=== PATIENT | female | born 1950 | race African-American/Black ===

== ENCOUNTER 2021-01-22 09:42 | Outpatient (REF) | payer MEDICARE, MEDICAID, SELFPAY ==
--- NOTE | ~2021-01-22 | MM_ITS ---
EXAMINATION: BONE DENSITOMETRY CLINICAL INDICATION: Asymptomatic menopausal state. COMPARISON: None (current study represents initial baseline exam). TECHNIQUE: Using a [employer] DXA System (software version: 13.1) manufactured by [employer], dual-energy x-ray absorptiometry was performed of the lumbar spine and left hip. The images are of good technical quality. Summary results are attached. FINDINGS: AP SPINE L1-L4: BMD 0.940 g/cm2, Z-score -1.3, T-score -2.0, osteopenia. LEFT FEMUR, NECK: BMD 0.703 g/cm2, Z-score -1.8, T-score -2.4, osteopenia. LEFT FEMUR, TOTAL: BMD 0.828 g/cm2, Z-score -1.1, T-score -1.4, osteopenia. IDENTIFIED RISK FACTORS: Dementia, menopause, hysterectomy, bilateral oophorectomy. HISTORY OF FRACTURE: None listed. MEDICATIONS: Bisphosphonates. MM/XR DEXA axial skeleton IMPRESSION: 1. DIAGNOSIS: Osteopenia based on the lowest T-score value of -2.4 in the femoral neck applying World Health Organization criteria. 2. 10-YEAR FRACTURE RISK PREDICTION, FRAX: Major osteoporotic fracture (clinical spine, forearm, hip or shoulder) 6.6%. Hip fracture 1.6%. 3. Treatment Recommendations: NOF guidelines recommend consideration for treatment in postmenopausal women and men age 50 and older presenting with the following: -A hip or vertebral (clinical or morphometric) fracture. -T-score less than or equal to -2.5 at the femoral neck or spine after appropriate evaluation to exclude secondary causes. -Low bone mass at the hip or spine and a 10-year fracture probability by FRAX of greater than or equal to 3% for hip fracture or greater than or equal to 20% for major osteoporotic fracture based on the [place] adapted WHO algorithm. 4. Other Recommendations: All treatment decisions require clinical judgment and consideration of individual patient factors, including patient preferences, comorbidities, previous drug use, risk factors not captured in the FRAX model (e.g. frailty, falls, vitamin D deficiency, increased bone turnover, interval significant decline in bone density) and possible under or overestimation of fracture risk by FRAX. Additional medical evaluation for secondary cause of low bone mineral density may be appropriate. FUTURE SCAN RECOMMENDATION: People with diagnosed cases of osteoporosis or at high risk for fracture should have regular bone mineral density tests. For patients eligible for Medicare, routine testing is allowed once every 2 years. The testing frequency can be increased to one year for patients who have rapidly progressing disease, those who are receiving or discontinuing medical therapy to restore bone mass, or have additional risk factors.
--- NOTE | ~2021-01-22 | MM_ITS ---
EXAMINATION: MM SCREENING DIGITAL BREAST TOMOSYNTHESIS, BILATERAL CLINICAL INFORMATION: Screening. Asymptomatic. Benign ultrasound-guided right breast biopsy 02/08/2017 (fibroadenoma). The lifetime risk of breast cancer based on the Tyrer-Cuzick Model is 4%. COMPARISON: Mammography: 08/04/2016, 08/03/2016, 07/27/2016 (new baseline), ultrasound right breast 08/03/2016 TECHNIQUE: Digital breast tomosynthesis is performed in both the craniocaudal and mediolateral oblique views along with computer-aided detection (CAD). Synthesized 2D images are generated from the tomosynthesis. Additional left MLO view is provided. FINDINGS: There are scattered areas of fibroglandular density (ACR BI-RADS breast composition Category b). There is fine fibronodular parenchymal pattern is similar to prior exams. There is a biopsy clip marker overlying a stable circumscribed nodule posterior 11:30 o'clock right breast corresponding to the known fibroadenoma. There is no significant mass or architectural abnormality or abnormal calcifications. There are scattered bilateral predominantly vascular calcifications. The axilla and skin contours are unremarkable. MM/MM tomosynthesis screening BI IMPRESSION: No mammographic evidence of malignancy. ASSESSMENT: BI-RADS 2: Benign RECOMMENDATION: Routine annual mammography screening. This patient's information was entered into a reminder system with a target due date for their next mammogram.
[2021-01-22 13:14] LABS: Alanine Aminotransferase < 6 U/L (0-31); Alkaline Phosphatase 99 U/L (39-117); Anion Gap 12 (12-20); Aspartate Amino Transferase 14 U/L (5-31); Bilirubin Total 0.6 mg/dL (0.0-1.0); Blood Urea Nitrogen 13 mg/dL (9-16); Calcium 9.6 mg/dL (8.4-10.2); Carbon Dioxide 28 mmol/L (22-29); Chloride 103 mmol/L (96-108); Cholesterol 169 mg/dL; Estimated Glomerular Filt Rate > 60; Glucose Fasting 105 mg/dL (60-99); HDL Cholesterol 47 mg/dL; LDL Cholesterol Calculated 108 mg/dl; Potassium 4.6 mmol/L (3.3-5.1); Sodium 138 mmol/L (135-145); Total Protein 7.1 g/dL (6.5-8.0); Triglycerides 72 mg/dL
== END 2021-01-22 09:43 | disposition home or self-care (01) ==
LOC: HO.MAMMO 09:42
PROVIDERS: PCP Internal Medicine; Visit Provider Nurse Practitioner Family
DX: Z13.220 Encounter for screening for lipoid disorders (principal); Z13.1 Encounter for screening for diabetes mellitus; Z12.31 Encounter for screening mammogram for malignant neoplasm of breast; Z13.820 Encounter for screening for osteoporosis; M85.80 Other specified disorders of bone density and structure, unspecified site; F03.90 Unspecified dementia, unspecified severity, without behavioral disturbance, psychotic disturbance, mood disturbance, and anxiety; Z78.0 Asymptomatic menopausal state; Z98.890 Other specified postprocedural states; Z90.722 Acquired absence of ovaries, bilateral; Z79.899 Other long term (current) drug therapy
CPT/HCPCS: 36415; 77063; 77067; 77080; 80053; 80061

== ENCOUNTER 2021-09-26 13:01 | Outpatient (REF) | payer MEDICARE, MEDICAID, SELFPAY ==
[2021-09-26 13:23] LABS: MANUAL DIFF FLAG NO
[2021-09-26 13:28] LABS: Basophils Absolute Auto 0.1 X10*3/uL (0.0-0.2); Basophils Percent Auto 0.9 % (0-2); Eosinophils Absolute Auto 0.2 X10*3/uL (0.0-0.4); Eosinophils Percent Auto 2.6 % (0-4); Hematocrit 41.1 % (37.0-47.0); Hemoglobin 12.8 g/dl (12.0-16.0); Imm Gran Abs Auto 0.01 X10*3/uL (0.00-0.03); Imm Gran Pct Auto 0.2 % (0.0-0.4); Mean Corpuscular HGB Conc 31.1 g/dl (31.0-35.0); Mean Corpuscular Hemoglobin 29.3 pg (27.0-33.0); Mean Corpuscular Volume 94.1 fL (80.0-98.0); Mean Platelet Volume 9.6 fL (9.4-12.3); Monocytes Absolute Auto 0.5 X10*3/uL (0.1-1.2); Neutrophils Absolute Auto 3.8 x10*3/uL (2.0-8.3); Neutrophils Percent Auto 58.3 % (45-73); Platelet Count 283 X10*3/uL (160-400); Red Blood Count 4.37 X10*6/uL (4.20-5.50); Red Cell Distribution Width 13.4 % (11.0-16.0); White Blood Count 6.5 X10*3/uL (4.8-10.8)
[2021-09-26 13:54] LABS: B Type Natriuretic Peptide < 10 pg/mL (<100)
[2021-09-26 13:58] LABS: Alanine Aminotransferase 12 U/L (0-31); Albumin Level 3.9 g/dL (3.5-5.0); Alkaline Phosphatase 108 U/L (39-117); Anion Gap 10 (12-20); Aspartate Amino Transferase 14 U/L (5-31); Bilirubin Total 0.4 mg/dL (0.0-1.0); Blood Urea Nitrogen 15 mg/dL (9-16); Calcium 9.3 mg/dL (8.4-10.2); Carbon Dioxide 27 mmol/L (22-29); Chloride 106 mmol/L (96-108); Estimated Glomerular Filt Rate 56; Glucose Random 131 mg/dL (60-115); Potassium 4.4 mmol/L (3.3-5.1); Sodium 139 mmol/L (135-145); Total Protein 7.1 g/dL (6.5-8.0)
[2021-09-26 14:13] LABS: TSH reflex Free T4 1.33 uIU/mL (0.32-4.0)
[2021-09-26 14:18] LABS: Erythrocyte Sedimentation Rate 18 MM/HR (0-20)
== END 2021-09-26 13:02 | disposition home or self-care (01) ==
LOC: HO.LAB 13:01
PROVIDERS: PCP Internal Medicine; Visit Provider Internal Medicine
DX: R60.9 Edema, unspecified (principal)
CPT/HCPCS: 36415; 80053; 83880; 84443; 85025; 85652

== ENCOUNTER 2021-12-02 12:27 | Outpatient (REF) | payer MEDICARE, MEDICAID, SELFPAY ==
[2021-12-02 13:42] LABS: Appearance Urine HAZY; Color Urine DK YELLOW; Glucose Urine UA NEG (NEG); Leukocyte Esterase Urine NEG (NEG); Nitrite Urine NEG (NEG); PH 5.5 (5.0-8.0); Specific Gravity - Urine >= 1.030 (1.005-1.025); Urine Blood NEG (NEG); Urine Ketones 5 MG/DL (NEG); Urine Protein TRACE MG/DL (NEG-TRACE)
== END 2021-12-02 12:28 | disposition home or self-care (01) ==
LOC: HO.LAB 12:27
PROVIDERS: PCP Internal Medicine; Visit Provider Internal Medicine
DX: R30.0 Dysuria (principal)
CPT/HCPCS: 81003

== ENCOUNTER 2021-12-26 10:16 | Outpatient (REF) | payer MEDICARE, MEDICAID, SELFPAY ==
[2021-12-26 11:12] LABS: Anion Gap 11 (12-20); Blood Urea Nitrogen 9 mg/dL (9-16); Calcium 9.2 mg/dL (8.4-10.2); Carbon Dioxide 27 mmol/L (22-29); Chloride 105 mmol/L (96-108); Estimated Glomerular Filt Rate > 60; Glucose Fasting 104 mg/dL (60-99); Potassium 3.9 mmol/L (3.3-5.1); Sodium 139 mmol/L (135-145)
== END 2021-12-26 10:17 | disposition home or self-care (01) ==
LOC: HO.LAB 10:16
PROVIDERS: PCP Internal Medicine; Visit Provider Nurse Practitioner Family
DX: Z13.1 Encounter for screening for diabetes mellitus (principal)
CPT/HCPCS: 36415; 80048

== ENCOUNTER 2022-01-23 10:15 | Outpatient (REF) | payer MEDICARE, MEDICAID, SELFPAY ==
--- NOTE | ~2022-01-23 | MM_ITS ---
EXAMINATION: MM SCREENING DIGITAL BREAST TOMOSYNTHESIS, BILATERAL CLINICAL INFORMATION: Screening. Asymptomatic. Benign right ultrasound guided biopsy 08/14/2016 (fibroadenoma). The lifetime risk of breast cancer based on the Tyrer-Cuzick Model is 3%. COMPARISON: Mammography: 01/22/2021, 08/04/2016, 08/03/2016, 07/27/2016 TECHNIQUE: Digital breast tomosynthesis is performed in both the craniocaudal and mediolateral oblique views along with computer-aided detection (CAD). Synthesized 2D images are generated from the tomosynthesis. Additional exaggerated left CC and additional left MLO view are provided. FINDINGS: There are scattered areas of fibroglandular density (ACR BI-RADS breast composition Category b). There are no significant masses, abnormal calcifications, or other abnormalities. No developing density. Biopsy clip marker posterior 11:00 right breast adjacent to small nodule, biopsy-proven fibroadenoma. There are scattered predominantly vascular calcifications. No significant changes. MM/MM tomosynthesis screening BI IMPRESSION: No mammographic evidence of malignancy. ASSESSMENT: BI-RADS 2: Benign RECOMMENDATION: Routine annual mammography screening. This patient's information was entered into a reminder system with a target due date for their next mammogram.
== END 2022-01-23 10:16 | disposition home or self-care (01) ==
LOC: HO.MAMMO 10:15
PROVIDERS: PCP Internal Medicine; Visit Provider Internal Medicine
DX: Z12.31 Encounter for screening mammogram for malignant neoplasm of breast (principal)
CPT/HCPCS: 77063; 77067

== ENCOUNTER 2022-05-01 09:20 | Outpatient (REF) | payer MEDICARE, MEDICAID, SELFPAY ==
[2022-05-01 09:48] LABS: MANUAL DIFF FLAG NO
[2022-05-01 10:34] LABS: Basophils Percent Auto 0.8 % (0-2); Eosinophils Absolute Auto 0.2 X10*3/uL (0.0-0.4); Eosinophils Percent Auto 4.8 % (0-4); Hematocrit 40.3 % (37.0-47.0); Hemoglobin 12.6 g/dl (12.0-16.0); Imm Gran Abs Auto 0.01 X10*3/uL (0.00-0.03); Imm Gran Pct Auto 0.2 % (0.0-0.4); Lymphocytes Absolute Auto 1.7 X10*3/uL (1.2-4.9); Lymphocytes Percent Auto 34.5 % (20-40); Mean Corpuscular HGB Conc 31.3 g/dl (31.0-35.0); Mean Corpuscular Hemoglobin 29.3 pg (27.0-33.0); Mean Corpuscular Volume 93.7 fL (80.0-98.0); Mean Platelet Volume 9.9 fL (9.4-12.3); Monocytes Absolute Auto 0.3 X10*3/uL (0.1-1.2); Monocytes Percent Auto 6.8 % (2-11); Neutrophils Absolute Auto 2.6 x10*3/uL (2.0-8.3); Neutrophils Percent Auto 52.9 % (45-73); Platelet Count 319 X10*3/uL (160-400); Red Cell Distribution Width 13.7 % (11.0-16.0)
[2022-05-01 10:44] LABS: Estimated Average Glucose 114 mg/dL; Hemoglobin A1c % 5.6 %
[2022-05-01 11:07] LABS: Alanine Aminotransferase 10 U/L (0-31); Albumin Level 3.8 g/dL (3.5-5.0); Alkaline Phosphatase 92 U/L (39-117); Anion Gap 16 (12-20); Aspartate Amino Transferase 15 U/L (5-31); Bilirubin Total 0.5 mg/dL (0.0-1.0); Blood Urea Nitrogen 11 mg/dL (9-16); Calcium 9.3 mg/dL (8.4-10.2); Carbon Dioxide 26 mmol/L (22-29); Chloride 104 mmol/L (96-108); Cholesterol 190 mg/dL; Estimated Glomerular Filt Rate > 60; Glucose Fasting 123 mg/dL (60-99); HDL Cholesterol 45 mg/dL; LDL Cholesterol Calculated 130 mg/dl; Potassium 4.6 mmol/L (3.3-5.1); Sodium 141 mmol/L (135-145); Triglycerides 79 mg/dL
[2022-05-01 11:31] LABS: TSH reflex Free T4 1.21 uIU/mL (0.32-4.0); Vitamin D 25-OH Total 50.6 ng/mL (>30)
== END 2022-05-01 09:21 | disposition home or self-care (01) ==
LOC: HO.LAB 09:20
PROVIDERS: PCP Internal Medicine; Visit Provider Internal Medicine
DX: E78.00 Pure hypercholesterolemia, unspecified (principal); I10 Essential (primary) hypertension; E55.9 Vitamin D deficiency, unspecified; R73.01 Impaired fasting glucose
CPT/HCPCS: 36415; 80053; 80061; 82306; 83036; 84443; 85025

== ENCOUNTER 2022-12-15 10:07 | Emergency (ER) | payer MEDICARE, MEDICAID, SELFPAY ==
--- NOTE | ~2022-12-15 | CT_ITS ---
EXAMINATION: CT HEAD WITHOUT CONTRAST CLINICAL INFORMATION: Altered mental status. COMPARISON: Brain MRI 12/07/2016. TECHNIQUE: Contiguous axial imaging was performed from the skull base to vertex without intravenous administration of contrast. This CT examination was performed using dose optimization techniques as appropriate, variously including the following: *Automated exposure control *Adjustment of mA and/or kV according to patient size (this includes techniques or standardized protocols for targeted exams where dose is matched to indication/reason for exam; i.e. extremities or head) *Use of iterative reconstruction technique DLP: 539 mGy-cm FINDINGS: There is no acute intracranial hemorrhage or abnormal extra-axial collection. No intracranial mass effect or midline shift. There is loss of parenchymal volume within the extra-axial enlargement of the ventricular volumes and sulcal spaces over the cerebral convexities. Gregg-white matter differentiation is grossly preserved and there is no evidence of acute territorial infarct. The calvarium and skull base are intact. Mastoid air cells and middle ear cavities are well aerated. Partial opacification of the right frontal sinus. CT/CT head/brain wo IV con IMPRESSION: There is loss of parenchymal volume and scattered chronic small vessel ischemic changes within the periventricular white matter. No evidence of acute territorial infarct or hemorrhage.
--- NOTE | ~2022-12-15 | XR_ITS ---
EXAMINATION: XR CHEST CLINICAL INFORMATION: Acute mental status change COMPARISON: Previous chest x-ray February 2018 TECHNIQUE: Frontal view of the chest was obtained. FINDINGS: The cardiac and mediastinal contours are stable. The lung volumes are low. There is subsegmental atelectasis at the lung bases. The lungs are otherwise clear. No pleural effusion or pneumothorax. Mild degenerative changes of the spine. XR/XR chest 1V IMPRESSION: Low lung volumes and subsegmental atelectasis at the lung bases.
[2022-12-15 10:17] VITALS: BP 106/70; PULSE 65; O2SAT 94
[2022-12-15 10:21] VITALS: BP 116/57; PULSE 56; RESP 18; TEMP 36.6; O2SAT 99; BMI 27.5
--- NOTE | 2022-12-15 10:24 | ED_ITS ---
HPI - General Adult General Chief complaint: General Medical Stated complaint: FROM HOME,INCREASED CONFUSION Time Seen by Provider: 12/15/22 10:23 Source: patient, family, EMS, RN notes reviewed and old records reviewed Mode of arrival: EMS Limitations: altered mental status History of Present Illness HPI narrative: 71 year old female with significant PMHx of HLD, anemia, anxiety, vitmain D deficiency and Alzheimer's dementia presenting to the ED with daughter c/o increasing generalized fatigue/weakness and lethargy x 1 week. Daughter reports they noted change last week after adult day program, patient needed 2 person assist into vehicle, and usually ambulates independently without assistive devices. Baseline dementia however conversational, pleasantly confused. Daughter reports this morning patient with increased lethargy, difficult to awaken, also noted to have odorous urine & URI sx with cough. Patient lives with . No reported falls/injury, nausea/vomiting, diarrhea, abdominal pain Onset (ago): week(s) Related Data Home Medications Medication Instructions Recorded Confirmed melatonin 5 mg tablet 5 mg PO BEDTIME 06/14/20 09/11/22 mirtazapine 7.5 mg tablet 7.5 mg PO BEDTIME 06/14/20 09/11/22 cyanocobalamin (vitamin B-12) 1,000 mcg PO DAILY 09/11/22 09/11/22 1,000 mcg tablet risperidone 0.5 mg tablet 0.5 mg PO QAM 09/11/22 09/11/22 Previous Rx's Medication Instructions Recorded ergocalciferol (vitamin D2) 1,250 1,250 mcg PO QWEEK #12 caps 09/06/22 mcg (50,000 unit) capsule Allergies Allergy/AdvReac Type Severity Reaction Status Date / Time penicillin V Allergy Unknown rash Verified 09/11/22 13:06 Review of Systems Review of Systems: Constitutional: No Fever, No Chills, No Fatigue, No Malaise ENT/Mouth: No Ear Pain, No Nasal Congestion, No sore throat Eyes: No Eye Pain, No Swelling, No Redness, No Vision Changes Cardiovascular: No Chest Pain, No SOB, No Edema, No Palpitations Respiratory: No Cough, No Sputum, No Dyspnea Gastrointestinal: No Nausea, No Vomiting, No Diarrhea, No Constipation, No Abdominal pain Genitourinary: No Dysuria, No Urinary Frequency, No Hematuria Musculoskeletal: No joint pain, No Myalgias, No Joint Swelling Skin: No Skin Lesions, No rash Neuro: +AMS, + Weakness, No Numbness, No Loss of Consciousness, No Dizziness, No Headache Yes all other systems are reviewed and are negative Constitutional: Constitutional: Reports as per [facility] Past Medical History Attestation statement: The following information was validated with the patient. Source: old records reviewed Medical History Alzheimer's dementia Anemia Anxiety Dyslipidemia Impaired fasting glucose Post-menopausal Screening for breast cancer Screening for diabetes mellitus Screening for hyperlipidemia Vitamin D deficiency Surgical History History of hysterectomy Family History Family History Father CHF (congestive heart failure) Diabetes Mother CHF (congestive heart failure) Diabetes Sister Diabetes Brother Lung abnormality Social History Social History Housing: House Alcohol intake: never Patient Tobacco Use Status: Never used Tobacco e-Cigarette/Vaping Use: Never Used Second Hand Smoke Exposure: Yes Advance Directives: Yes Advance Directives Information Provided: Yes Advance Directives on File: No service: No Current occupational status: retired Cognitive needs: Yes Hearing needs: No Vision needs: No Physical Exam ED Vital Signs: Vital Signs - 24 hr 12/15/22 10:21 12/15/22 12:37 12/15/22 13:14 Temperature 97.8 F 98.0 F Pulse Rate 56 69 69 Respiratory Rate 18 16 Blood Pressure 116/57 L 110/44 L 110/44 L Pulse Oximetry 99 98 98 Oxygen Delivery Method Room Air Room Air BMI result Body Mass Index 27.5 Const General: cooperative, healthy appearing and no acute distress Orientation/consciousness: oriented to person and oriented to place Limitations: no limitations HENMT Head: Yes normal to inspection and Yes atraumatic Ears: hearing grossly normal bilaterally General nose exam: Normal external nose present Face and sinus: Yes normal facial exam Eyes General: appearance normal, both eyes and all related structures Pupils: Equal, round and reactive pupils present EOM: EOMs intact bilaterally Neck Neck: Yes normal visual inspection and Yes no meningeal signs Resp Effort & Inspection: normal respiratory effort and no respiratory distress Auscultation: diminished lung sounds bilateral throughout Cardio Rate: regular rate Heart sounds: S1 normal heart sound present and S2 normal heart sound present GI Inspection: Yes normal to inspection Palpation (GI): Soft to palpation, nontender, no guarding and not rigid Back/Spine/Pelvis Other: No midline cervical/thoracic/lumbar spinous tenderness/step-off or deformity Skin Rashes: no rashes Wounds: no wounds Neuro General: oriented to person, oriented to place, tone normal, moves all extremities, no meningeal signs, no focal motor deficits and CN's II-XI intact bilaterally Cranial nerves: Yes Equal, round and reactive pupils present Motor exam (neuro): 5/5 motor strength present throughout Extrem General: Yes normal to inspection and Yes no pedal edema Course Course Course Narrative: -1209--COVID-19 positive. Mild leukopenia as expected secondary to COVID-19. Labs otherwise reassuring CT head/brain wo IV con IMPRESSION: There is loss of parenchymal volume and scattered chronic small vessel ischemic changes within the periventricular white matter. No evidence of acute territorial infarct or hemorrhage. XR chest 1V IMPRESSION: Low lung volumes and subsegmental atelectasis at the lung bases. ? > hypoxia, tachycardia or tachypnea. Low suspicion for PE. No evidence of pneumonia. Results discussed with patient, daughter, and , the patient's home health aide will be suspended with COVID-19 status. Will obtain PT/Case Management eval. Still pending UA -patient passed PT, case management will set up home VNA. Urine not obtained by pure wick, straight cath attempted x 2 with a lot of resistance, offered mild sedation with medication to however he would rather obtain outpatient slip & bring UA in at later date. Discussed with at length importance of obtaining urine, and dangers of patient's age/possible UTI, he verbalized understanding. -patient is ambulating in the ED with steady gait. Provided with outpatient UA slip Results discussed with patient including worrisome signs and symptoms and strict return precautions, and when to return to the emergency department. They verbalized understanding and feel safe for discharge at this time. Medical Decision Making Medical Decision Making MDM Narrative: 71 year old female with significant PMHx of HLD, anemia, anxiety, vitmain D deficiency and Alzheimer's dementia presenting to the ED with daughter c/o increasing generalized fatigue/weakness and lethargy x 1 week, also noted to have odorous urine & URI sx with cough. On exam vital signs stable, NAD, nontoxic appearing, A&Ox2 (baseline dementia), diminished lung sounds throughout, abdomen soft/nontender, no focal neuro deficits. Concern for metabolic vs infectious etiology. Rule out ICH, although of lower suspicion. Low suspicion for severe sepsis at this time Plan: EKG, labs, UA, CXR, head CT, reassess Please refer to course for remaining clinical decision making, interpretation of labs/imaging results, and discussions with consultants and/or family members. Differential Diagnosis Differential Diagnoses: The differential diagnosis associated with the presentation includes As above Admission/Observation Consideration of admission/observation: Escalation of care including admission/observation considered Lab Data MDM Lab Attestation statement: I reviewed the patient's lab results. 12/15/22 11:11 12/15/22 11:12 Labs: Lab Results 12/15/22 12/15/22 12/15/22 Range/Units 11:11 11:11 11:12 WBC 4.3 L (4.8-10.8) X10*3/uL RBC 4.00 L (4.20-5.50) X10*6/uL Hgb 12.1 (12.0-16.0) g/dl Hct 38.0 (37.0-47.0) % MCV 95.0 (80.0-98.0) fL MCH 30.3 (27.0-33.0) pg MCHC 31.8 (31.0-35.0) g/dl RDW 12.9 (11.0-16.0) % Plt Count 243 (160-400) X10*3/uL MPV 9.2 L (9.4-12.3) fL Immature Gran % (Auto) 0.7 H (0.0-0.4) % Neut % (Auto) 43.2 L (45-73) % Lymph % (Auto) 40.2 H (20-40) % [place] % (Auto) 7.6 (2-11) % Eos % (Auto) 7.6 H (0-4) % Baso % (Auto) 0.7 (0-2) % Lymph # (Auto) 1.7 (1.2-4.9) X10*3/uL [place] # (Auto) 0.3 (0.1-1.2) X10*3/uL Eos # (Auto) 0.3 (0.0-0.4) X10*3/uL Baso # (Auto) 0.0 (0.0-0.2) X10*3/uL Abs Immat Gran (auto) 0.03 (0.00-0.03) X10*3/uL Absolute Neuts (auto) 1.9 L (2.0-8.3) x10*3/uL Absolute Nucleated RBC 0.000 (0.0-0.012) X10*3/uL Nucleated RBC % (auto) 0.0 (0.0-0.2) /100WBC Smear Tech's Comments VERIFIED PT 12.5 (10.0-13.1) SEC INR 1.1 (0.9-1.1) Sodium 142 (135-145) mmol/L Potassium 3.9 (3.3-5.1) mmol/L Chloride 108 (96-108) mmol/L Carbon Dioxide 28 (22-29) mmol/L Anion Gap 10 L (12-20) BUN 11 (9-16) mg/dL Creatinine 0.81 (0.5-1.4) mg/dL Estim Creat Clear Calc 63.5 Estimated GFR > 60 Random Glucose 95 (60-115) mg/dL Calcium 8.9 (8.4-10.2) mg/dL Magnesium 2.2 (1.6-2.6) mg/dL Total Bilirubin 0.5 (0.0-1.0) mg/dL Direct Bilirubin 0.2 (0.0-0.5) mg/dL AST 15 (5-31) U/L ALT 6 (0-31) U/L Alkaline Phosphatase 80 (39-117) U/L Troponin I High Sens (<3.5-17.0) ng/L B-Natriuretic Peptide (<100) pg/mL Total Protein 6.9 (6.5-8.0) g/dL Albumin 3.5 (3.5-5.0) g/dL Lipase 13 (8-78) U/L COVID-19 (MATI) (Negative) COVID-19 Clin Com 12/15/22 12/15/22 12/15/22 Range/Units 11:12 11:12 11:12 WBC (4.8-10.8) X10*3/uL RBC (4.20-5.50) X10*6/uL Hgb (12.0-16.0) g/dl Hct (37.0-47.0) % MCV (80.0-98.0) fL MCH (27.0-33.0) pg MCHC (31.0-35.0) g/dl RDW (11.0-16.0) % Plt Count (160-400) X10*3/uL MPV (9.4-12.3) fL Immature Gran % (Auto) (0.0-0.4) % Neut % (Auto) (45-73) % Lymph % (Auto) (20-40) % Obion % (Auto) (2-11) % Eos % (Auto) (0-4) % Baso % (Auto) (0-2) % Lymph # (Auto) (1.2-4.9) X10*3/uL [place] # (Auto) (0.1-1.2) X10*3/uL Eos # (Auto) (0.0-0.4) X10*3/uL Baso # (Auto) (0.0-0.2) X10*3/uL Abs Immat Gran (auto) (0.00-0.03) X10*3/uL Absolute Neuts (auto) (2.0-8.3) x10*3/uL Absolute Nucleated RBC (0.0-0.012) X10*3/uL Nucleated RBC % (auto) (0.0-0.2) /100WBC Smear Tech's Comments PT (10.0-13.1) SEC INR (0.9-1.1) Sodium (135-145) mmol/L Potassium (3.3-5.1) mmol/L Chloride (96-108) mmol/L Carbon Dioxide (22-29) mmol/L Anion Gap (12-20) BUN (9-16) mg/dL Creatinine (0.5-1.4) mg/dL Estim Creat Clear Calc Estimated GFR Random Glucose (60-115) mg/dL Calcium (8.4-10.2) mg/dL Magnesium (1.6-2.6) mg/dL Total Bilirubin (0.0-1.0) mg/dL Direct Bilirubin (0.0-0.5) mg/dL AST (5-31) U/L ALT (0-31) U/L Alkaline Phosphatase (39-117) U/L Troponin I High Sens < 2.7 (<3.5-17.0) ng/L B-Natriuretic Peptide 24 (<100) pg/mL Total Protein (6.5-8.0) g/dL Albumin (3.5-5.0) g/dL Lipase (8-78) U/L COVID-19 (MATI) Positive A (Negative) COVID-19 Clin Com See Note Radiology Impression Discussion of test interpretation with radiology: I have reviewed the radiologist's reading. External Record Review External record reviewed: Inpatient record, Office record, Outpatient record, Prior outpatient labs, Prior outpatient radiology, Primary care record and Outside ED record Tests considered The following testing was considered but not selected: As above Discharge Plan Discharge Clinical Impression: COVID-19, Weakness generalized Patient Disposition: Home, Self-Care Instructions: COVID-19 (Coronavirus Disease 2019) (ED) Additional Instructions: Your 's blood work was reassuring. We were unable to obtain a urine sample, please obtain urine sample as soon as possible and bring to your PCP/laboratory for testing. Urine infections in the elderly can be very dangerous. If she develops persistent fevers, shortness of breath, persistent or worsening change in mental status return to the emergency department At this time you will be okay for discharge. Please self isolate for 5 days. Do not expose yourself to others. You may not go to work or school. Please continue to follow cold instructions and wash your hands frequently. You may take Tylenol / Motrin as directed on the bottle for pain or fever. If you have constant or persistent shortness of breath, fever unresolved with medications, chest pain, or your unable to eat or drink please return to the ED CDC Guidelines for home isolation: - Stay away from others - WEAR A MASK if you are sick AND STAY HOME - Cover your mouth and nose with a tissue when you cough or sneeze. Dispose of tissues in a lined trash can and wash your hands immediately with soap and water for at least 20 seconds. If soap and water are not available, clean hands with alcohol-based hand dependency director that contains at least 60% alcohol. - Clean your hands often with soap and water for at least 20 seconds - Avoid touching your eyes, nose and mouth with unwashed hands - Do not share dishes, drinking glasses, cups, eating utensils, towels, or bedding with other people in your home. After using these items, wash them thoroughly with soap and water or put in the career technical counselor. - Clean high-touch surfaces in your isolation area ( sick room and bathroom) every day; let a caregiver clean and disinfect high-touch surfaces in other areas of the home. Clean the area or item with soap and water or another detergent if it is dirty. Then, use a household disinfectant. - Limit contact with pets and animals: If you must care for a pet, wash your hands before and after interacting with them) Prescriptions: No Action ergocalciferol (vitamin D2) 1,250 mcg (50,000 unit) capsule 1,250 mcg PO QWEEK Qty: 12 4RF melatonin 5 mg tablet 5 mg PO BEDTIME mirtazapine 7.5 mg tablet 7.5 mg PO BEDTIME risperidone 0.5 mg tablet 0.5 mg PO QAM cyanocobalamin (vitamin B-12) 1,000 mcg tablet 1,000 mcg PO DAILY Referrals: [facility] [Outside] (Will call to arrange a visit within 48 hours.) Jerman Chong MD [Primary Care Provider] - 3 days
--- NOTE | 2022-12-15 10:49 | ECG_ITS ---
Test Reason : AMS Blood Pressure : / mmHG Vent. Rate : 070 BPM Atrial Rate : 070 BPM P-R Int : 186 ms QRS Dur : 060 ms QT Int : 400 ms P-R-T Axes : 050 -02 017 degrees QTc Int : 432 ms Normal sinus rhythm Inferior infarct , age undetermined - could be normal variant Abnormal ECG When compared with ECG of 03-MAR-2018 16:41, No significant changes seen Referred By: Savanna Doty Electronically Signed By:ROWENA EARLY
[2022-12-15 11:19] LABS: Basophils Percent Auto 0.7 % (0-2); Eosinophils Absolute Auto 0.3 X10*3/uL (0.0-0.4); Eosinophils Percent Auto 7.6 % (0-4); Hemoglobin 12.1 g/dl (12.0-16.0); Imm Gran Abs Auto 0.03 X10*3/uL (0.00-0.03); Imm Gran Pct Auto 0.7 % (0.0-0.4); Lymphocytes Absolute Auto 1.7 X10*3/uL (1.2-4.9); Lymphocytes Percent Auto 40.2 % (20-40); MANUAL DIFF FLAG SCAN; Mean Corpuscular HGB Conc 31.8 g/dl (31.0-35.0); Mean Corpuscular Hemoglobin 30.3 pg (27.0-33.0); Mean Platelet Volume 9.2 fL (9.4-12.3); Monocytes Absolute Auto 0.3 X10*3/uL (0.1-1.2); Monocytes Percent Auto 7.6 % (2-11); Neutrophils Absolute Auto 1.9 x10*3/uL (2.0-8.3); Neutrophils Percent Auto 43.2 % (45-73); Platelet Count 243 X10*3/uL (160-400); Red Cell Distribution Width 12.9 % (11.0-16.0); SCAN SMEAR FLAG 1; White Blood Count 4.3 X10*3/uL (4.8-10.8)
[2022-12-15 11:27] LABS: INTERNATIONAL NORM RATIO 1.1 (0.9-1.1); Prothrombin Time 12.5 SEC (10.0-13.1)
[2022-12-15 11:32] LABS: COVID-19 Test Positive (Negative); IDNOW Serial# BCCEAD1C
[2022-12-15 11:35] LABS: Alanine Aminotransferase 6 U/L (0-31); Albumin Level 3.5 g/dL (3.5-5.0); Alkaline Phosphatase 80 U/L (39-117); Anion Gap 10 (12-20); Aspartate Amino Transferase 15 U/L (5-31); Bilirubin Direct 0.2 mg/dL (0.0-0.5); Bilirubin Total 0.5 mg/dL (0.0-1.0); Blood Urea Nitrogen 11 mg/dL (9-16); Calcium 8.9 mg/dL (8.4-10.2); Carbon Dioxide 28 mmol/L (22-29); Chloride 108 mmol/L (96-108); Creatinine Clr Calc Pharmacy 63.5; Estimated Glomerular Filt Rate > 60; Glucose Random 95 mg/dL (60-115); Lipase 13 U/L (8-78); Magnesium 2.2 mg/dL (1.6-2.6); Potassium 3.9 mmol/L (3.3-5.1); Sodium 142 mmol/L (135-145); Total Protein 6.9 g/dL (6.5-8.0)
[2022-12-15 11:39] LABS: SLIDE REVIEW VERIFIED
[2022-12-15 11:40] LABS: B Type Natriuretic Peptide 24 pg/mL (<100)
[2022-12-15 11:45] LABS: Troponin-I High Sensitivity < 2.7 ng/L (<3.5-17.0)
[2022-12-15 12:37] VITALS: BP 110/44; PULSE 69; RESP 16; TEMP 36.7; O2SAT 98
[2022-12-15 13:14] VITALS: BP 110/44; PULSE 69; O2SAT 98
--- NOTE | 2022-12-15 13:58 | MHC.CM.ED ---
Addendum entered by Farrah Morris 12/15/22 14:10: [facility] able [facility] accept patient. Patient accepts. Original Note: Received case management consult from [facility]anna [facility]. Patient came to the ER due to increased weakness. Patient found to be positive Covid. Physical therapy eval completed. No therapy indicated at this time. Met with patient, Mykel and daughter, Maciej. Patient lives with Mykel, ambulates independently and goes to a day program. PCP verified. Patient receivied 4 Moderna vaccines. Patient and family agreeable to [facility] referral for prison to help monitor for complications of Covid. Family will transport patient home. Patient, Maciej Hogue Ellen RN and Savanna [facility] aware. Continue to monitor for d/c needs.
--- NOTE | 2022-12-15 14:22 | PC.NURSE ---
unable to obtain urine sample. family wanting to take pt home. pa to dc pt with outpatient UA slip
== END 2022-12-15 14:24 | disposition home or self-care (01) ==
PROVIDERS: Physician Assistant; Emergency Provider Emergency Medicine; PCP Internal Medicine
DX: U07.1 COVID-19 (principal); R53.1 Weakness; R26.81 Unsteadiness on feet; R41.82 Altered mental status, unspecified; R94.31 Abnormal electrocardiogram [ECG] [EKG]; R06.02 Shortness of breath; R51.9 Headache, unspecified; Z79.899 Other long term (current) drug therapy
CPT/HCPCS: 36415; 70450; 71045; 80048; 80076; 81001; 81003; 83690; 83735; 83880; 84484; 85025; 85610; 87086; 87635; 93005; 96360; 97161; 99284

== ENCOUNTER 2022-12-15 19:13 | Outpatient (REF) | payer MEDICARE, MEDICAID, SELFPAY ==
[2022-12-15 19:53] LABS: Appearance Urine Clear; Color Urine Dark Yellow; Glucose Urine UA Negative (Negative); Leukocyte Esterase Urine Trace (Negative); Nitrite Urine Negative (Negative); PH >= 9.0 (5.0-9.0); Specific Gravity - Urine >= 1.030 (1.005-1.025); UMIC TRIGGER UACC YES; Urine Blood Negative (Negative); Urine Ketones Negative (Negative); Urine Protein 30 (1+) mg/dL (Neg-Trace)
[2022-12-15 20:49] LABS: Bacteria Urine Trace (None Seen); Hyaline Casts Urine 0-2 /LPF (0-2); RBC Urine 0-2 /HPF (0-2); WBC Urine 0-5 /HPF (0-5)
== END 2022-12-15 19:14 | disposition home or self-care (01) ==
LOC: HO.LNP 19:13
PROVIDERS: PCP Physician Assistant; Visit Provider Internal Medicine
DX: Z13.89 Encounter for screening for other disorder (principal)
CPT/HCPCS: 81001; 81003; 87086

== ENCOUNTER 2023-01-28 10:45 | Outpatient (REF) | payer MEDICARE, MEDICAID, SELFPAY ==
--- NOTE | ~2023-01-28 | MM_ITS ---
EXAMINATION: MM SCREENING DIGITAL BREAST TOMOSYNTHESIS, BILATERAL CLINICAL INFORMATION: Screening. Asymptomatic. The lifetime risk of breast cancer based on the Tyrer-Cuzick Model is 2.8%. COMPARISON: Mammography: This study is compared with prior exams dating back to 2017. TECHNIQUE: Digital breast tomosynthesis is performed in both the craniocaudal and mediolateral oblique views along with computer-aided detection (CAD). Synthesized 2D images are generated from the tomosynthesis. FINDINGS: There are scattered areas of fibroglandular density (ACR BI-RADS breast composition Category b). There is tissue marker in the right breast from prior benign percutaneous biopsy. There are a few, bilateral, benign calcifications which is not changed significantly since at least 2020. There are no significant masses, abnormal calcifications, or other abnormalities. MM/MM tomosynthesis screening BI IMPRESSION: No mammographic evidence of malignancy. ASSESSMENT: BI-RADS BI-RADS 2 - Benign Findings RECOMMENDATION: Routine annual mammography screening. 1 year F/U This examination should not preclude the clinical evaluation of a suspicious palpable abnormality. This patient's information was entered into a reminder system with a target due date for their next mammogram.
--- NOTE | ~2023-01-28 | MM_ITS ---
EXAMINATION: BONE DENSITOMETRY CLINICAL INDICATION: Menopause. COMPARISON: Baseline BD dated 01/22/2021. TECHNIQUE: Using a [employer] DXA System (software version: 13.1) manufactured by [employer], dual-energy x-ray absorptiometry was performed of the lumbar spine and left hip. The images are of good technical quality. Summary results are attached. FINDINGS: LEFT FEMUR, NECK: Current: BMD 0.607 g/cm2, Z-score -2.4, T-score -3.1, osteoporosis. Baseline: BMD 0.703 g/cm2. LEFT FEMUR, TOTAL: Current: BMD 0.699 g/cm2, Z-score -2.0, T-score -2.5, osteoporosis, 15.6% decrease from baseline (<5% change is not significant). Baseline: BMD 0.828 g/cm2. AP SPINE L1-L3 (excluding L4): The data of L1-L4 has been changed to exclude the L4 vertebral body, because degenerative sclerosis at this level may cause overestimation of lumbar spine density. Current: BMD 0.798 g/cm2, Z-score -2.4, T-score -3.1, osteoporosis, 15.2% decrease from baseline (<5% change is not significant). Baseline: BMD 0.941 g/cm2. IDENTIFIED RISK FACTORS: Menopause, hysterectomy, bilateral oophorectomy. HISTORY OF FRACTURE: None listed. MEDICATIONS: Multivitamin, vitamin D. MM/XR DEXA axial skeleton IMPRESSION: 1. DIAGNOSIS: Osteoporosis based on the lowest T-score value of -3.1 in the lumbar spine and femur neck applying World Health Organization criteria. 2. 10-YEAR FRACTURE RISK PREDICTION, FRAX: According to the guidelines, FRAX calculation should only be performed on patients in the osteopenia bone density category. Therefore, FRAX was not performed on this patient. 3. Treatment Recommendations: NOF guidelines recommend consideration for treatment in postmenopausal women and men age 50 and older presenting with the following: -A hip or vertebral (clinical or morphometric) fracture. -T-score less than or equal to -2.5 at the femoral neck or spine after appropriate evaluation to exclude secondary causes. -Low bone mass at the hip or spine and a 10-year fracture probability by FRAX of greater than or equal to 3% for hip fracture or greater than or equal to 20% for major osteoporotic fracture based on the [place] adapted WHO algorithm. 4. Other Recommendations: All treatment decisions require clinical judgment and consideration of individual patient factors, including patient preferences, comorbidities, previous drug use, risk factors not captured in the FRAX model (e.g. frailty, falls, vitamin D deficiency, increased bone turnover, interval significant decline in bone density) and possible under or overestimation of fracture risk by FRAX. Additional medical evaluation for secondary cause of low bone mineral density may be appropriate. FUTURE SCAN RECOMMENDATION: People with diagnosed cases of osteoporosis or at high risk for fracture should have regular bone mineral density tests. For patients eligible for Medicare, routine testing is allowed once every 2 years. The testing frequency can be increased to one year for patients who have rapidly progressing disease, those who are receiving or discontinuing medical therapy to restore bone mass, or have additional risk factors.
== END 2023-01-28 10:46 | disposition home or self-care (01) ==
LOC: HO.MAMMO 10:45
PROVIDERS: PCP Internal Medicine; Visit Provider Nurse Practitioner Family
DX: Z12.31 Encounter for screening mammogram for malignant neoplasm of breast (principal); Z13.820 Encounter for screening for osteoporosis; Z78.0 Asymptomatic menopausal state
CPT/HCPCS: 77063; 77067; 77080

== ENCOUNTER → 2023-01-28 11:50 | Outpatient (BNV) | payer MEDICARE, MEDICAID, SELFPAY | PROVIDERS: PCP Internal Medicine; Visit Provider Radiology Diagnostic Radiology | DX: Z12.31 Encounter for screening mammogram for malignant neoplasm of breast (principal) | CPT/HCPCS: 77063; 77067; 77080 ==

== ENCOUNTER 2023-03-18 11:23 | Outpatient (AMB) | payer MEDICARE, MEDICAID, SELFPAY ==
[2023-03-18 11:55] VITALS: BP 122/78; PULSE 86; O2SAT 97; BMI 23.5
--- NOTE | 2023-03-18 11:55 | MHC.PC.OV ---
Vital Signs 03/18/23 11:55 Height 5 ft 5 in Weight 141 lb 8 oz BMI 23.5 BP 122/78 Blood Pressure Location Lt brachial Position Sitting Pulse 86 Pulse Source Pulse Oximeter Pulse Oximetry (%) 97 Oxygen Delivery Method Room Air Intake Visit Reasons: Alzheimer's dementia, insomnia Pharmacy Affairs Assistant Required: No Accompanied by: Self / Same As Patient Allergies penicillin V Allergy (Unknown, Verified 03/18/23 12:24) rash Medication List - Last Reconciled 03/18/23 by Jerman Chong MD cyanocobalamin (vitamin B-12) 1,000 mcg PO DAILY ergocalciferol (vitamin D2) 1,250 mcg PO QWEEK melatonin 5 mg PO BEDTIME mirtazapine 7.5 mg PO BEDTIME risperidone 0.5 mg PO QAM Tobacco use date assessed: 03/18/23 Fall risk assessment: No Falls in past year Last assessed Fall Risk: 03/18/23 Dental Screening Dental Screen Date: 03/18/23 Did you have a dental visit in the last 12 months?: No Did you have a dental problem in the last 6 months where you did not have access to dental care?: No Was dental information given to patient?: Patient has dentist HPI Alzheimer's dementia, insomnia HPI Details Patient comes in today for her follow up visit - is accompanied as usual by her who is her HCP and her primary exhibit artist/caregiver Per her , she is reportedly doing well and her condition and situation is mostly unchanged from previous Her family members all continue to take turns watching her and she usually has someone with her and is never left alone on her own unattended States that they are able to get patient to eat fairly well and she has only lost about 3 to 4 pounds since her last visit States that she sleeps okay at night although her has noticed that sometimes, she just lies down in bed with her eyes staring at the celing for a while; she's had no behavioral issues or agitation so far No other acute complaints or symptoms are noted Patient needs her Mirtazapine Rx refilled today [facility] Medical History (Updated 03/18/23 @ 12:25 by Jerman Chong MD) Post-menopausal Anxiety Anemia Vitamin D deficiency Impaired fasting glucose Dyslipidemia Alzheimer's dementia Surgical History History of hysterectomy Family History Father CHF (congestive heart failure) Diabetes Mother CHF (congestive heart failure) Diabetes Sister Diabetes Brother Lung abnormality Social History Housing: House Alcohol intake: never Patient Tobacco Use Status: Never used Tobacco e-Cigarette/Vaping Use: Never Used Second Hand Smoke Exposure: Yes service: No Current occupational status: retired Cognitive needs: Yes Hearing needs: No Vision needs: No Questionnaire PHQ-9 Over the last 2 weeks, how often have you been bothered by any of the following problems? 1. Little interest or pleasure in doing things: not at all 2. Feeling down, depressed, or hopeless: nearly every day 3. Trouble falling or staying asleep, or sleeping too much: nearly every day 4. Feeling tired or having little energy: nearly every day 5. Poor appetite or overeating: nearly every day 6. Feeling bad about yourself - or that you are a failure or have let yourself or your family down: several days 7. Trouble concentrating on things, such as reading the newspaper or watching television: more than half the days 8. Moving or speaking so slowly that other people could have noticed. Or the opposite - being so fidgety or restless that you have been moving around a lot more than usual: nearly every day 9. Thoughts that you would be better off or of hurting yourself in some way: not at all Total score: 18 Depression Screening Interpretation: Positive Depression Screening Follow-up: Other (pt has name on file at [facility], waiting for pt signature for visits per HCP Mykel) [address]80 - PHQ-9 Billing: Yes Source: Developed by Drs. Walt Hunt, Judie Chowdary, Eagle Patino and colleagues, with an educational cruzito from [employer]. Thrive Questionnaire Date Thrive assessed: 03/18/23 I am a: Patient What is your living situation today?: I have a steady place to live Within the past 12 months, did the food you bought not last and you didn't have the money to get more?: Never true Within the past 12 months, did you worry whether your food would run out before you got money to buy more?: Never true Do you have trouble paying for medicines?: No Do you have trouble getting transportation to medical appointments?: No Do you have trouble paying your heating and electricity bill?: No Do you have trouble taking care of your child, family member or friend?: No Do you have trouble with day-to-day activities such as bathing, preparing meals, shopping, managing finances, etc.?: No Are you currently unemployed and looking for a job?: No Are you interested in more education?: No Please select the resources that you would like help with: None Currently or been in a relationship where the following occur: no concerns reported AUDIT C Alcohol Use Questionnaire (AUDIT-C) 1. How often do you have a drink containing alcohol?: Never 3. How often do you have six or more drinks on one occasion?: Never Total Score: 0 Score Reviewed/Action Taken: Yes HARLEY-7 AMB Questionnaire HARLEY-7 Date HARLEY - 7 assessed: 03/18/23 Feeling nervous, anxious, or on edge: 1 = Several days Not being able to stop or control worryin = Several days Worrying too much about different things: 1 = Several days Trouble relaxin = Several days Being so restless that it is hard to sit still: 0 = Not at all Becoming easily annoyed or irritable: 0 = Not at all Feeling afraid as if something awful might happen: 0 = Not at all Total HARLEY-7 score (0-4 normal; 5-9 mild; 10-14 moderate; 15-21 severe): 4 Source: Developed by Drs. Walt Hunt, Judie Chowdary, Eagle Patino and colleagues, with an educational cruzito from [employer]. HARLEY-7 Assessment Billing HARLEY-7 Assessment Tool: HARLEY-7 Assessment 88052 Review of Systems Const Details: * ROS is obtained from patient's - patient is unable to provide info due to her dementia Denies fever(s) and Denies headache(s) ENT Denies dysphagia, Denies dizziness, Denies headache(s), Denies odynophagia and Denies sore throat Card Denies chest pain and Denies dyspnea Resp Denies cough and Denies dyspnea GI Denies abdominal pain, Denies change in bowel habits, Denies dysphagia, Reports fecal incontinence (occasionally), Denies nausea, Denies odynophagia and Denies vomiting Denies dysuria and Reports urinary incontinence Skin/Breast Details: (+) on and off swelling of both lower legs and feet Neuro Denies behavioral changes, Reports confusion, Denies dizziness and Denies headache(s) Psych Denies behavioral changes and Reports confusion Physical exam (Primary Care) Vital Signs: Last Vital Signs Pulse 86 03/18/23 11:55 BP 122/78 03/18/23 11:55 Pulse Ox 97 03/18/23 11:55 Oxygen Delivery Method Room Air 03/18/23 11:55 BMI result Body Mass Index 23.5 Tobacco/Smoking Status: Tobacco use Status Tobacco use date assessed 03/18/23 03/18/23 11:57 Patient Tobacco Use Status Never used Tobacco 03/18/23 11:57 e-Cigarette/Vaping Use Never Used 03/18/23 11:57 PHQ-9: PHQ-9 Score PHQ-9: Total score 18 03/21/23 19:21 Depression Screening Interpretation: Positive Depression Screening Follow-up: Other (pt has name on file at [facility], waiting for pt signature for visits per HCP Mykel) Thrive Assessment: Date of Thrive Assessment Date Thrive assessed 03/18/23 03/18/23 11:57 Currently or been in a relationship where the following occur: no concerns reported Const General: confusion Orientation/consciousness: confusion HENMT Ears: TM's normal bilaterally and EAC's normal Throat: Yes posterior oropharynx normal and Yes tonsils normal Neck Neck: Yes no lymphadenopathy and Yes supple Resp Auscultation: clear to auscultation bilaterally, no rales and no wheezes Cardio Rate: regular rate Rhythm: regular rhythm Heart sounds: no murmurs GI Palpation (GI): Soft to palpation, nontender, no guarding and not rigid Auscultation: normal bowel sounds Neuro General: confusion Extrem General: Yes no clubbing, cyanosis or edema Assessment and Plan Assessment & Plan (1) Alzheimer's dementia: Code(s): G30.9 - Alzheimer's disease, unspecified; F02.80 - Dementia in other diseases classified elsewhere, unspecified severity, without behavioral disturbance, psychotic disturbance, mood disturbance, and anxiety Plan: Patient attends Adult Daycare program 3 times a week on a regular basis Family members take turns helping to watch her when she is at home so patient always has someone watching and attending to her 18/01 Follow up with neurology as scheduled Was previously on Donepezil but this was recently discontinued by neurology as it is not expected to provide patient with any improvement of her symptoms at this point (2) Dyslipidemia: Code(s): E78.5 - Hyperlipidemia, unspecified Plan: Reinforced low cholesterol diet?but states that the family tries to do their best here but sometimes finds it difficult to get patient to eat and they have to just give her what she likes eating with little regards to dietary restrictions LDL cholesterol was at 130 mg/dl when last checked in April 2022 Will recheck some labs when patient presents for her next follow up appointment in 6 months (3) Impaired fasting glucose: Code(s): R73.01 - Impaired fasting glucose Plan: HgnA1c was at 5.6% on her labs done back in April 2022; was at 5.9% a couple of years ago Reinforced low calorie diet - will continue to monitor her blood sugar and glycemic control regularly (4) Vitamin D deficiency: Code(s): E55.9 - Vitamin D deficiency, unspecified Plan: Continue Vitamin D2 03452 units once a week (5) Anemia: Code(s): D64.9 - Anemia, unspecified Qualifiers: Anemia type: B12 deficiency Vitamin B12 deficiency anemia type: other dietary B12 deficiency Qualified Code(s): D51.3 - Other dietary vitamin B12 deficiency anemia Plan: Corrected on her previous labs Will continue to monitor her CBC regularly (6) Anxiety: Code(s): F41.9 - Anxiety disorder, unspecified Plan: Continue Mirtazapine 7.5 mg daily at bedtime and Melatonin 5 mg daily at bedtime; is also on Risperidone 0.5 mg Q AM Follow-up with Neurology as scheduled Plan Follow up in 6 months Medications: Changed From mirtazapine 7.5 mg PO BEDTIME To mirtazapine 7.5 mg PO BEDTIME 90 days 90 tabs 3RF Coding Level of Care Code Est Pt Level 3 (05591) Diagnoses Alzheimer's dementia G30.9; F02.80 Dyslipidemia E78.5 Impaired fasting glucose R73.01 Vitamin D deficiency E55.9 Other dietary vitamin B12 deficiency anemia D51.3 Anemia type: B12 deficiency Vitamin B12 deficiency anemia type: other dietary B12 deficiency Anxiety F41.9 Additional Codes HARLEY-7 Assessment Billing - HARLEY-7 Assessment Tool: HARLEY-7 Assessment 24655 ([id number])
== END 2023-03-18 12:31 | disposition home or self-care (01) ==
PROVIDERS: PCP Internal Medicine; Visit Provider Internal Medicine
DX: G30.9 Alzheimer's disease, unspecified (principal); F02.80 Dementia in other diseases classified elsewhere, unspecified severity, without behavioral disturbance, psychotic disturbance, mood disturbance, and anxiety; E55.9 Vitamin D deficiency, unspecified; F41.9 Anxiety disorder, unspecified; R73.01 Impaired fasting glucose; E78.5 Hyperlipidemia, unspecified; D51.3 Other dietary vitamin B12 deficiency anemia
CPT/HCPCS: 99213

== ENCOUNTER 2023-05-12 13:22 | Emergency (ER) | payer MEDICARE, MEDICAID, SELFPAY ==
--- NOTE | ~2023-05-12 | XR_ITS ---
EXAMINATION: XR CHEST CLINICAL INFORMATION: Weakness COMPARISON: Previous chest x-ray most recent November 2022 TECHNIQUE: 2 views of the chest were obtained. FINDINGS: The cardiac silhouette is slightly enlarged. Thoracic aorta is calcified. There may be pulmonary venous redistribution. There is chronic scarring or subsegmental atelectasis left lower lung. New increased interstitial markings at the right lung base. The lungs are otherwise clear. New small bilateral pleural effusions. There are degenerative changes of the spine. XR/XR chest 2V IMPRESSION: Question mild CHF.
--- NOTE | ~2023-05-12 | CT_ITS ---
EXAMINATION: CT HEAD WITHOUT CONTRAST CLINICAL INFORMATION: Mental status change COMPARISON: 12/15/2022 TECHNIQUE: Contiguous axial imaging was performed from the skull base to vertex without intravenous administration of contrast. This CT examination was performed using dose optimization techniques as appropriate, variously including the following: *Automated exposure control *Adjustment of mA and/or kV according to patient size (this includes techniques or standardized protocols for targeted exams where dose is matched to indication/reason for exam; i.e. extremities or head) *Use of iterative reconstruction technique DLP: 521 mGy-cm FINDINGS: There is prominence to the sulci and ventricles consistent with atrophy and involutional change but no evidence of intra or extra-axial fluid collection, hemorrhage, mass or mass effect. Calvarium intact. CT/CT head/brain wo IV con IMPRESSION: No acute intracranial pathology.
[2023-05-12 13:45] VITALS: BP 106/70; PULSE 63; PULSE 87; RESP 18; TEMP 37.1; O2SAT 94; O2SAT 98; BMI 26.6
--- NOTE | 2023-05-12 13:48 | ECG_ITS ---
Test Reason : WEAKNESS Blood Pressure : / mmHG Vent. Rate : 090 BPM Atrial Rate : 090 BPM P-R Int : 174 ms QRS Dur : 062 ms QT Int : 354 ms P-R-T Axes : 044 003 019 degrees QTc Int : 433 ms Normal sinus rhythm Possible Inferior infarct (cited on or before 15-DEC-2022) Abnormal ECG When compared with ECG of 15-DEC-2022 10:54, Heart rate has increased Referred By: Nelida Ortiz Electronically Signed By:ZACARIAS ROSARIO MD
--- NOTE | 2023-05-12 13:49 | ED_ITS ---
HPI - General Adult General Chief complaint: General Medical Stated complaint: INC WEAKNESS AND INC CONFUSION PER EMS Time Seen by Provider: 05/12/23 13:48 Source: patient, family (patient's daughter) and EMS Mode of arrival: EMS Limitations: physical limitation (patient has a history of Alzheimer's dementia) History of Present Illness HPI narrative: Patient is a 72 year old assigned female at with a history of Alzheimer's dementia presenting to the emergency department today with diarrhea and increased weakness. Patient's daughter states that the patient has had increased weakness, even less verbal communication than previously, and frequent episodes of diarrhea. Patient's daughter states that the patient has not had any recent trauma or vomiting. Onset (ago): day(s) Relieving factors: none Exacerbating factors: none Associated symptoms: confusion (chronic for the patient) and weakness Treatments prior to arrival: none Related Data Home Medications Medication Instructions Recorded Confirmed melatonin 5 mg tablet 5 mg PO BEDTIME 06/14/20 03/18/23 cyanocobalamin (vitamin B-12) 1,000 mcg PO DAILY 09/11/22 03/18/23 1,000 mcg tablet risperidone 0.5 mg tablet 0.5 mg PO QAM 09/11/22 03/18/23 Previous Rx's Medication Instructions Recorded ergocalciferol (vitamin D2) 1,250 1,250 mcg PO QWEEK #12 caps 09/06/22 mcg (50,000 unit) capsule mirtazapine 7.5 mg tablet 7.5 mg PO BEDTIME 90 days #90 tabs 03/18/23 Allergies Allergy/AdvReac Type Severity Reaction Status Date / Time penicillin V Allergy Unknown rash Verified 03/18/23 12:24 Review of Systems 2 Review of Systems: Yes Other (Patient has Alzheimer's dementia) Constitutional: Constitutional: Reports no additional constitutional complaints, Denies chills, Denies fever(s) and Reports weakness Eyes: Eyes: Reports no additional eye complaints and Denies eye discharge ENT: Denies epistaxis Cardiovascular: Cardiovascular: Reports no additional cardiovascular complaints, Denies Loss of Consciousness and Denies dyspnea Respiratory: Respiratory: Reports no additional respiratory complaints and Denies dyspnea Gastrointestinal: Gastrointestinal: Reports no additional gastrointestinal complaints, Denies hematochezia, Reports change in bowel habits, Reports change in stool character, Reports diarrhea and Reports loose stools Genitourinary: Genitourinary: Denies hematuria Musculoskeletal: Musculoskeletal: Reports no additional musculoskeletal complaints and Denies deformity Neurologic: Reports confusion (chronic for the patient) and Reports weakness Psychiatric: Psychiatric: Reports no additional psychiatric complaints and Reports confusion (chronic for the patient) Endocrine: Endocrine: Reports no additional endocrine complaints Hematologic/Lymphatic: Hematologic/Lymphatic: Reports no additional hematologic/lymphatic complaints Allergic/Immunologic: Allergic/Immunologic: Reports no additional allergic/immunologic complaints PMFSH Past Medical History Attestation statement: The following information was validated with the patient. (all information validated with the patient's daughter) Source: old records reviewed, obtained from family (patient's daughter provided all history.) and nursing notes reviewed Medical History Post-menopausal Anxiety Anemia Vitamin D deficiency Impaired fasting glucose Dyslipidemia Alzheimer's dementia Surgical History History of hysterectomy Family History Family History Father CHF (congestive heart failure) Diabetes Mother CHF (congestive heart failure) Diabetes Sister Diabetes Brother Lung abnormality Social History Social History Housing: House Alcohol intake: never Patient Tobacco Use Status: Never used Tobacco e-Cigarette/Vaping Use: Never Used Second Hand Smoke Exposure: Yes Advance Directives: No service: No Current occupational status: retired Cognitive needs: Yes Hearing needs: No Vision needs: No Physical Exam ED Vital Signs: Vital Signs - 24 hr 05/12/23 13:45 Temperature 98.8 F Pulse Rate 87 Respiratory Rate 18 Pulse Oximetry 98 Oxygen Delivery Method Room Air BMI result Body Mass Index 26.6 Const General: confusion (chronic for the patient) Nutritional Appearance: well nourished Orientation/consciousness: confusion (chronic for the patient) Limitations: physical limitations (patient has alzheimer's dementia) HENLA Head: Yes normal to inspection and Yes atraumatic Ears: hearing grossly normal bilaterally and external ears normal General nose exam: Normal external nose present, no nasal discharge noted and no epistaxis Face and sinus: Yes normal facial exam, No abrasion and No laceration Mouth: Normal oral and palatal mucosa present, no drooling and no muffled voice Eyes General: appearance normal, both eyes and all related structures Periorbital: periorbital findings normal Eyelids: Yes eyelids normal Conjunctivae: conjunctivae normal Pupils: Equal, round and reactive pupils present EOM: EOMs intact bilaterally Neck Neck: Yes normal visual inspection, Yes full ROM and Yes no lymphadenopathy Chest Chest palpation & inspection: normal inspection of the chest Resp Effort & Inspection: normal respiratory effort and able to speak in complete sentences GI Inspection: Yes normal to inspection Neuro General: confusion (chronic for the patient) Cranial nerves: Yes Equal, round and reactive pupils present Extrem General: Yes normal to inspection, Yes full ROM and Yes capillary refill normal Medications Administered Generic Name Dose Route Start Last Admin Trade Name Freq PRN Reason Stop Dose Admin Sodium Chloride 1,000 mls @ 999 mls/hr 05/12/23 15:00 05/12/23 14:59 Ns IV 05/12/23 16:00 999 mls/hr .Q1H1M WADE Administration Medical Decision Making Medical Decision Making [facility] Narrative: Patient is a 72 year old assigned female at with a history of Alzheimer's dementia presenting to the emergency department today with diarrhea and increased confusion. Patient's physical exam was as noted in the physical exam portion of this note. Patient's blood work was unremarkable. Patient's urine is pending. Patient's EKG was unremarkable. Patient's chest x-ray and head CT are pending. I explained my physical exam findings as well as all test results to the patient and the patient's family. I answered all questions asked by the patient's family. Patient's disposition will be determined after the urine and imaging results. Patient signed out to the evening CAROLINE. Differential Diagnosis Differential Diagnoses: The differential diagnosis associated with the presentation includes Alzheimer's dementia Viral illness Gastroenteritis Lab Data [facility] Lab Attestation statement: I reviewed the patient's lab results. My interpretation of these studies and their corresponding values is that they are grossly normal. 05/12/23 14:09 05/12/23 14:09 Labs: Lab Results 05/12/23 05/12/23 05/12/23 Range/Units 14:09 14:14 14:26 WBC 6.0 (4.8-10.8) X10*3/uL RBC 4.00 L (4.20-5.50) X10*6/uL Hgb 11.9 L (12.0-16.0) g/dl Hct 37.9 (37.0-47.0) % MCV 94.8 (80.0-98.0) fL MCH 29.8 (27.0-33.0) pg MCHC 31.4 (31.0-35.0) g/dl RDW 13.1 (11.0-16.0) % Plt Count 336 D (160-400) X10*3/uL MPV 9.4 (9.4-12.3) fL Immature Gran % (Auto) 0.3 (0.0-0.4) % Neut % (Auto) 54.8 (45-73) % Lymph % (Auto) 28.9 (20-40) % Willacy % (Auto) 9.0 (2-11) % Eos % (Auto) 6.0 H (0-4) % Baso % (Auto) 1.0 (0-2) % Lymph # (Auto) 1.7 (1.2-4.9) X10*3/uL Willacy # (Auto) 0.5 (0.1-1.2) X10*3/uL Eos # (Auto) 0.4 (0.0-0.4) X10*3/uL Baso # (Auto) 0.1 (0.0-0.2) X10*3/uL Abs Immat Gran (auto) 0.02 (0.00-0.03) X10*3/uL Absolute Neuts (auto) 3.3 (2.0-8.3) x10*3/uL Absolute Nucleated RBC 0.000 (0.0-0.012) X10*3/uL Nucleated RBC % (auto) 0.0 (0.0-0.2) /100WBC PT 13.6 H (11.1-13.3) SEC INR 1.1 (0.9-1.1) APTT 32.7 (26.0-36.4) SEC VBG pH 7.46 H (7.32-7.43) VBG pCO2 40 mmHg VBG pO2 30 mmHg VBG HCO3 29 H (22-26) mmol/L VBG O2 Saturation 43.0 % VBG Base Excess 5.3 mmol/L Sodium 142 (135-145) mmol/L Potassium 4.8 D (3.3-5.1) mmol/L Chloride 106 (96-108) mmol/L Carbon Dioxide 27 (22-29) mmol/L Anion Gap 14 (12-20) BUN 12 (9-16) mg/dL Creatinine 0.80 (0.5-1.4) mg/dL Estim Creat Clear Calc 62.5 Estimated GFR > 60 Random Glucose 91 (60-115) mg/dL Lactic Acid 2.0 (0.5-2.0) mmol/L Calcium 9.3 (8.4-10.2) mg/dL Magnesium 2.0 (1.6-2.6) mg/dL Total Bilirubin 0.5 (0.0-1.0) mg/dL AST 17 (5-31) U/L ALT 7 (0-31) U/L Alkaline Phosphatase 80 (39-117) U/L Ammonia 25 (13-55) umol/L Total Creatine Kinase 163 H (26-140) U/L Troponin I High Sens 9.3 D (<3.5-17.0) ng/L B-Natriuretic Peptide 54 (<100) pg/mL Total Protein 7.4 (6.5-8.0) g/dL Albumin 3.6 (3.5-5.0) g/dL Influenza Type A (PCR) NEGATIVE (Negative) Influenza Type B (PCR) NEGATIVE (Negative) RSV RNA Qual (PCR) NEGATIVE (Negative) SARS-CoV-2 RNA (RT-PCR) NEGATIVE (Negative) Independent Interpretation I performed an independent interpretation of an: EKG Interpretation: Vent. Rate: 090 BPM Atrial Rate: 090 BPM P-R Int: 174 ms QRS Dur: 062 ms QT Int: 354 ms P-R-T Axes: 044 003 019 degrees QTc Int: 433 ms Normal sinus rhythm Possible Inferior infarct (cited on or before 15-DEC-2022) Abnormal ECG When compared with ECG of 15-DEC-2022 10:54, No significant change was found DD/ 1412 Independent Historian Clinical information obtained from an independent historian. History obtained from or confirmed by: EMS (EMS provided additional history and confirmed the history provided by the patient's daughter.) and Other (patient's daughter provided all history.) Discharge Plan Discharge Clinical Impression: Diarrhea, Chronic confusion Patient Disposition: Still a Patient Prescriptions: No Action ergocalciferol (vitamin D2) 1,250 mcg (50,000 unit) capsule 1,250 mcg PO QWEEK Qty: 12 4RF melatonin 5 mg tablet 5 mg PO BEDTIME risperidone 0.5 mg tablet 0.5 mg PO QAM cyanocobalamin (vitamin B-12) 1,000 mcg tablet 1,000 mcg PO DAILY mirtazapine 7.5 mg tablet 7.5 mg PO BEDTIME 90 Days Qty: 90 3RF
[2023-05-12 14:19] LABS: MANUAL DIFF FLAG NO
[2023-05-12 14:21] LABS: Basophils Absolute Auto 0.1 X10*3/uL (0.0-0.2); Eosinophils Absolute Auto 0.4 X10*3/uL (0.0-0.4); Hematocrit 37.9 % (37.0-47.0); Hemoglobin 11.9 g/dl (12.0-16.0); Imm Gran Abs Auto 0.02 X10*3/uL (0.00-0.03); Imm Gran Pct Auto 0.3 % (0.0-0.4); Lymphocytes Absolute Auto 1.7 X10*3/uL (1.2-4.9); Lymphocytes Percent Auto 28.9 % (20-40); Mean Corpuscular HGB Conc 31.4 g/dl (31.0-35.0); Mean Corpuscular Hemoglobin 29.8 pg (27.0-33.0); Mean Corpuscular Volume 94.8 fL (80.0-98.0); Mean Platelet Volume 9.4 fL (9.4-12.3); Monocytes Absolute Auto 0.5 X10*3/uL (0.1-1.2); Neutrophils Absolute Auto 3.3 x10*3/uL (2.0-8.3); Neutrophils Percent Auto 54.8 % (45-73); Platelet Count 336 X10*3/uL (160-400); Red Cell Distribution Width 13.1 % (11.0-16.0)
[2023-05-12 14:21] LABS: VBG Base Excess 5.3 mmol/L; VBG HCO3 29 mmol/L (22-26); VBG pCO2 40 mmHg; VBG pH 7.46 (7.32-7.43); VBG pO2 30 mmHg
[2023-05-12 14:25] LABS: Venous Blood Gas Refer to POC result
[2023-05-12 14:26] LABS: Ammonia 25 umol/L (13-55)
[2023-05-12 14:27] LABS: INTERNATIONAL NORM RATIO 1.1 (0.9-1.1); Prothrombin Time 13.6 SEC (11.1-13.3)
[2023-05-12 14:29] LABS: Partial Thromboplastin Time 32.7 SEC (26.0-36.4)
[2023-05-12 14:39] LABS: Alanine Aminotransferase 7 U/L (0-31); Albumin Level 3.6 g/dL (3.5-5.0); Alkaline Phosphatase 80 U/L (39-117); Anion Gap 14 (12-20); Aspartate Amino Transferase 17 U/L (5-31); B Type Natriuretic Peptide 54 pg/mL (<100); Bilirubin Total 0.5 mg/dL (0.0-1.0); Blood Urea Nitrogen 12 mg/dL (9-16); Calcium 9.3 mg/dL (8.4-10.2); Carbon Dioxide 27 mmol/L (22-29); Chloride 106 mmol/L (96-108); Creatinine Clr Calc Pharmacy 62.5; Estimated Glomerular Filt Rate > 60; Glucose Random 91 mg/dL (60-115); Potassium 4.8 mmol/L (3.3-5.1); Sodium 142 mmol/L (135-145); Total Protein 7.4 g/dL (6.5-8.0)
--- NOTE | 2023-05-12 14:41 | MHC.EDTECH ---
Patient changed over by t/w and RN. Patient found to be incontinent of urine and stool in brief. This was removed and Pt cleaned up. Pt changed into hospital gown and red socks. Warm blanket given.
[2023-05-12 14:42] LABS: Troponin-I High Sensitivity 9.3 ng/L (<3.5-17.0)
[2023-05-12] MEDS: 0.9 % Sodium Chloride 1,000 ML 999 ML IV (14:59)
[2023-05-12 15:10] LABS: Influenza A PCR NEGATIVE (Negative); Influenza B PCR NEGATIVE (Negative); Resp Syncy Virus RNA Qual PCR NEGATIVE (Negative); SARS COV2 PCR INHOUSE NEGATIVE (Negative)
--- NOTE | 2023-05-12 15:55 | PC.NURSE ---
Attempts to obtaine urine via straight cath unsuccessful. Patient agitated kicking and tying to hit staff. Family at bedside, unable to calm patient to allow for procedure. Purwick placed, provider aware.
[2023-05-12 16:00] VITALS: RESP 20; O2SAT 97
[2023-05-12 16:55] LABS: Appearance Urine Clear; Color Urine Yellow; Glucose Urine UA Negative (Negative); Leukocyte Esterase Urine Negative (Negative); Nitrite Urine Positive (Negative); Specific Gravity - Urine 1.015 (1.005-1.025); UMIC TRIGGER UACC YES; Urine Blood Negative (Negative); Urine Ketones 15 mg/dL (Negative); Urine Protein Negative (Neg-Trace)
[2023-05-12 17:00] LABS: Bacteria Urine 4+ (None Seen); Hyaline Casts Urine 0-2 /LPF (0-2); UACC Culture Trigger YES; WBC Urine 0-5 /HPF (0-5)
--- NOTE | 2023-05-12 17:06 | PC.NURSE ---
Patient agitated during attempts at care and blood draws, family at bedside stating to let patient rest at this time
[2023-05-12 18:00] VITALS: RESP 20; O2SAT 98
--- NOTE | 2023-05-12 18:43 | PC.NURSE ---
Tech remains unable to draw repeat trop d/t patient becoming agitated , provider aware
[2023-05-12 19:03] VITALS: BP 113/78; PULSE 99; RESP 18; TEMP 37; O2SAT 94
--- NOTE | 2023-05-12 19:24 | PC.NURSE ---
Assumed care of pt. Family at bedside. report called to Tabitha Roberts RN. [facility].
--- NOTE | 2023-05-12 19:41 | MHC.EDTECH ---
Patient arrived to unit at approx. 1930, transferred into bed from [facility]. Purewick and kingsley pad changed, warm blankets given, family at bedside to say jonatan. Bed alarm on, call valentino within reach.
[2023-05-12 20:00] VITALS: BP 123/80; PULSE 91; RESP 20; TEMP 36.6; O2SAT 96
--- NOTE | 2023-05-13 07:04 | PC.NURSE ---
Assumed care of pt at 1930. PT pulled out IV on arrival. No iv meds ordered at this time. PT also pulled out pure wick. PT disoriented and attempting to assault staff when changing linens and clothing. Brief put on pt. Pt requested to use bathroom. giat unsteady this Rn providing assistance walking to bathroom once in bathroom pt became upset and did not want to take her down her brief. Pt refusing the take off vital equipment at this time.
[2023-05-13 07:05] VITALS: BP 133/53; PULSE 88; RESP 18; TEMP 36.6; O2SAT 99
--- NOTE | 2023-05-13 09:19 | MHC.CM.ED ---
Addendum entered by Farrah Morris 05/13/23 10:40: Patient's , Mykel in ER waiting room requesting to speak to CM. Mykel doesn't feel patient can safely return home. She goes to a [facility] day program for 30 hours a week and he receives some home health aides through [facility]. Mykel reports his daughters are only available once a week to help. Patient was diagnosed with dementia 11 years ago. Mykel has been taking care of patient all of this time. He is experiencing caregiver fatigue. He has spoken with [facility] and [facility] about placement. Referrals made to these facilities at his request. Mykel aware if these 2 facilities are unable to offer a bed that referral will have to be referred out. Also aware that 4 facilities have closed locally and LTC placement may not be found locally. Mykel verbalizes understanding and aware patient may need to be placed further away and transfer closer when a bed is available. Mykel has a copy of patient's HCP at home and will obtain a copy for CM. Original Note: Received case management consult overnight from Charito VIDES. Patient has a history of dementia and lives with her . Patient has care from [facility]. Patient's cancelled the overnight care. Patient stayed in the ER overnight. Met with patient and daughter, Elenita. Patient lives with her , Mykel. Patient received 4 Moderna vaccines. Discharge plan discussed with Elenita. Discharge options discussed. Elenita is declining LTC. Patient will return home with family and caregivers through [facility]. Someone will be [place] [facility] [place] 10[place] to transport patient home. Patient, Elenita, Jennifer RN and Aleksandra VIDES aware. Continue to monitor for d/c needs.
[2023-05-13 14:00] VITALS: BP 119/67; PULSE 93; RESP 16; TEMP 36.6; O2SAT 98
--- NOTE | 2023-05-13 15:07 | MHC.CM.ED ---
Addendum entered by Farrah Morris 05/13/23 15:37: Patient can transfer to [facility] tomorrow, 05/14 at 10am. Joy ARTHUR booked. Med [facility] with chart. Patient, Jennifer Hogue RN and Aleksandra VIDES aware. Original Note: [facility] is able to offer a bed. Mykel accepts. MDS completed. Faxed to [facility] and sent to [facility]. Continue to monitor for d/c needs.
--- NOTE | 2023-05-13 16:38 | PC.NURSE ---
Pt A/O to self. slightly agitated at start of shift, was able to calm down once family arrived to visit. Moderate PO intake, requires sets up assistance. Multiple family members in throughout the day, pt much calmer resting watching TV. Plan to d/c tomorrow. No IV access.
[2023-05-13] MEDS: cefuroxime axetiL 250 MG TABLET PO (19:08)
[2023-05-13 19:24] VITALS: BP 131/65; PULSE 93; RESP 16; TEMP 37.2; O2SAT 100
[2023-05-13 22:00] VITALS: BP 125/58; PULSE 77; RESP 18; TEMP 36.6; O2SAT 99
[2023-05-14 06:00] VITALS: BP 115/54; PULSE 66; RESP 18; TEMP 36.7; O2SAT 96
[2023-05-14 08:27] VITALS: BP 108/70; PULSE 86; RESP 20; TEMP 36.6; O2SAT 97
[2023-05-14] MEDS: cefuroxime axetiL 250 MG TABLET PO (08:37)
== END 2023-05-14 13:03 ==
PROVIDERS: Physician Assistant Medical; Emergency Provider Emergency Medicine Emergency Medical Services; PCP Internal Medicine
DX: N39.0 Urinary tract infection, site not specified (principal); R41.0 Disorientation, unspecified; R06.02 Shortness of breath; R94.31 Abnormal electrocardiogram [ECG] [EKG]; R53.1 Weakness; R19.7 Diarrhea, unspecified; R26.81 Unsteadiness on feet; Z79.899 Other long term (current) drug therapy
CPT/HCPCS: 0241U; 70450; 71046; 80053; 81001; 82140; 82550; 82803; 83605; 83735; 83880; 84484; 85025; 85610; 85730; 87040; 87086; 87088; 87186; 93005; 96360; 96361; 97161; 99285

== ENCOUNTER 2023-12-28 16:14 | Outpatient (AMB) | payer MEDICARE, SELFPAY ==
--- NOTE | 2023-12-28 16:20 | A.OFFVIS_ITS ---
Intake Vital Signs 12/28/23 16:25 Height 5 ft 5 in Weight 135 lb 2 oz BMI 22.5 BP 130/72 Blood Pressure Location Lt brachial Position Sitting Pulse 105 H Pulse Source Pulse Oximeter Pulse Oximetry (%) 100 Oxygen Delivery Method Room Air Intake Visit Reasons: swv Intake Note: Patient is here for an Annual Wellness Visit. 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 Crisis Specialist: Crisis Specialist Present and Crisis Specialist offered & declined Accompanied by: Spouse Allergies penicillin V Allergy (Unknown, Verified 12/28/23 17:00) rash Medication List - Last Reconciled 12/28/23 by Jerman Chong MD acetaminophen 650 mg PO QID PRN bisacodyl 10 mg MS DAILY PRN food supplemt, lactose-reduced 1 ea PO .DAILY at 2 PM magnesium hydroxide (Milk of Magnesia) 30 mL PO DAILY PRN melatonin 5 mg PO BEDTIME mirtazapine 15 mg PO BEDTIME multivitamin with minerals (Multiple Vitamin-Minerals tablet) 1 tab PO DAILY sodium phosphates 19-7 gram/118 mL (Fleet Enema) 118 mL MS DAILY PRN HPI swv HPI Details Patient comes in today for her Annual Medicare Wellness Exam and follow up visit She is now residing at [facility] at their controlled unit - her states that she has been at [facility] for a few months now and appears to be doing okay there States that he was not able to go visit her for a while after he had his cervical spine surgery with Dr. Ortiz a couple of months ago but is now trying to get back to visiting her there everyday when he can States that he has brought to the staff at [facility]'s attention recently that patient will need help with feeding during her mealtimes and they cannot just hand her food to her and leave her alone to feed herself as with her dementia, she will likely end up not eating anything Patient today appears comfortable and responds briefly to some questions when asked or talked to but her responses are mostly one word answers or 'grunts' Her states that she seems to be doing okay and does not think that she has any acute issues at present He also brought in some of her papers from the [place] [facility] for documentation and updates - these include her demographics from [facility], her current med list and her MOLST form Patient last had her mammogram done in January 2023 Has not had her annual gynecology exam / pap smear nor colonoscopy done due to her declining cognitiion - feels that she would not be able to cope with the preps necessary for the exams IPPE/AWV: c/o of Annual Wellness Visit, subsequent visit. Medical / Social History Reviewed Past Medical History Yes . [place] of Care / Care Team list updated Yes . Surgical/Hospitalization History Yes . Current Medications (including OTC and supplements) Yes . Family History Yes . Tobacco Control form Yes . AUDIT-C (Alcohol use) form Yes . Illicit drug use in Social History Yes . Current diagnosis of depression? No Appropriate PHQ2/PHQ9 completed Yes . Data entered by Shaper Set Up Operator and reviewed by provider Home Safety Throw rugs? No Grab bars? Yes Raised toilet seats? No Working smoke detectors? Yes Working carbon monoxide detectors? Yes Data entered by Shaper Set Up Operator and reviewed by provider Activities of Daily Living (ADLs) Difficulty bathing or showering? Yes Difficulty dressing? Yes Difficulty using the toilet? No Difficulty getting in and out of bed? No Difficulty walking? No Receives help from another person with any of the above tasks? Yes Instrumental Activities of Daily Living (IADLs) Uses the telephone with help Gets to places out of walking distance with help - mostly due to her dementia Goes shopping for groceries with help Prepares own meals with help Does own minor home maintenance with help Does own laundry with help Does own housework with help Manages own money with help Currently takes medications? Yes Takes medication with help End-of-Life Planning Discussed advance directive Yes Advance directive on file Discussed wishes expressed in advance directive agreed to following patient's wishes Fall Risk: Fall History Have you had any falls with injury in the past year? No . Have you had two or more falls in the past year? No . Fall Risk Assessment: No falls in the past year . HRA filled out by the patient, reviewed by Provider and scanned. [facility] Medical History Post-menopausal Anxiety Anemia Vitamin D deficiency Impaired fasting glucose Dyslipidemia Alzheimer's dementia Surgical History History of hysterectomy Family History Father CHF (congestive heart failure) Diabetes Mother CHF (congestive heart failure) Diabetes Sister Diabetes Brother Lung abnormality Social History (Updated 12/28/23 @ 17:47 by Jerman Chong MD) Housing: Correction Alcohol intake: never Patient Tobacco Use Status: Never used Tobacco e-Cigarette/Vaping Use: Never Used Second Hand Smoke Exposure: Yes Advance Directives Date on File: 05/13/23 service: No Current occupational status: retired Cognitive needs: Yes Hearing needs: No Vision needs: No Questionnaire Medicare Wellness Checkup [age] What gender do you identify with?: female During the past 4 weeks, how much have you been bothered by emotional problems such as feeling anxious, depressed, irritable, sad or downhearted, and blue?: slightly During the past 4 weeks, has your physical & emotional health limited your s ocial activities with family, friends, neighbors, or groups?: slightly During the past 4 weeks, how much bodily pain have you generally had?: very mild pain During the past 4 weeks, was someone available to help you if you needed & wanted help?: yes, quite a bit During the past 4 weeks, what was the hardest physical activity you could do for at least 2 minutes?: very light Can you get to places out of walking distance without help? (For eg., can you travel alone on buses, taxis or drive your car?): No Can you go shopping for groceries or clothes without someone's help?: No Can you prepare your own meals?: No Can you do your housework without help?: No Because of any health problems, do you need the help of another person with your personal care needs such as eating, bathing, dressing or getting around the house?: Yes Can you handle your own money without help?: No During the past 4 weeks, how would you rate your health in general?: very good During the past 4 weeks how have things been going for you?: pretty well Are you having difficulties driving your car?: not applicable, I don't use a car Do you always fasten your seat belt when you are in a car?: yes, usually During past 4 weeks, have you been bothered by the following: never: Teeth or denture problems?, seldom: Falling or dizzy when standing up, Sexual problems? and Problems using the telephone? and often: Trouble eating well? and Tiredness or fatigue? Have you fallen 2 or more times in the past year?: No Are you afraid of falling?: No Are you a smoker?: no During the past 4 weeks, how many drinks of wine, beer, or other alcoholic beverages did you have?: no alcohol at all Do you exercise for about 20 minutes 3 or more times a week?: no, I usually do not exercise this much Have you been given information to help with the following?: yes: Hazards in your house that might hurt you? and yes: Keeping track of your medications? How often do you have trouble taking medicines the way you have been told to take them?: I always take medicine as prescribed How confident are you that you can control & manage most of your health problems?: not very confident What is your race?: Black or Mini Mental State Exam (MMSE) Orientation What is the (year) (season) (date) (day) (month)?: year (unable to do - patient has ADVANCED DEMENTIA) Score Score: 1 Activity of Daily Living Bathing - sponge bath, tub bath or shower: receives help in bathing more than one body part (or not bathed) Dressing - getting clothes from closets & drawers, including inner/outer garments & fasteners.: receives help getting clothes or getting dressed, or stays undressed Toileting - going to the 'toilet room' for urine/bowel elimination & cleaning self/arranging clothes: receives help going to toilet room, cleaning self or arranging clothes Transfer: moves in & out of bed and chair without help (may use support object) Continence: has occasional 'accidents' Feeding: receives help feeding or is partly/completely fed by tubes/intravenous Total Score: 3 Information obtained from: informant () Using telephone: dependent Traveling: dependent Shopping: dependent Preparing meals: dependent Housework: dependent Taking medicine: dependent Managing money: dependent PHQ-9 Over the last 2 weeks, how often have you been bothered by any of the following problems? 1. Little interest or pleasure in doing things: not at all 2. Feeling down, depressed, or hopeless: not at all 3. Trouble falling or staying asleep, or sleeping too much: not at all 4. Feeling tired or having little energy: not at all 5. Poor appetite or overeating: not at all 6. Feeling bad about yourself - or that you are a failure or have let yourself or your family down: not at all 7. Trouble concentrating on things, such as reading the newspaper or watching television: not at all 8. Moving or speaking so slowly that other people could have noticed. Or the opposite - being so fidgety or restless that you have been moving around a lot more than usual: not at all 9. Thoughts that you would be better off or of hurting yourself in some way: not at all Total score: 0 Depression Screening Interpretation: Negative (screening is limited/unreliable due to dementia) Depression Screening Done: Yes 21574 - PHQ-9 Billing: Yes Source: Developed by Drs. Walt Hunt, Judie Chowdary, Eagle Patino and colleagues, with an educational cruzito from [employer]. Thrive Questionnaire Date Thrive assessed: 12/28/23 I am a: Parent/Caregiver What is your living situation today?: I have a steady place to live (currently in [place] [facility]) Within the past 12 months, did the food you bought not last and you didn't have the money to get more?: Never true Within the past 12 months, did you worry whether your food would run out before you got money to buy more?: Never true Do you have trouble paying for medicines?: No Do you have trouble getting transportation to medical appointments?: No Do you have trouble paying your heating and electricity bill?: No Do you have trouble taking care of your child, family member or friend?: No Do you have trouble with day-to-day activities such as bathing, preparing meals, shopping, managing finances, etc.?: No Are you currently unemployed and looking for a job?: No Are you interested in more education?: No THRIVE Score: 0 HARLEY-7 AMB Questionnaire HARLEY-7 Date HARLEY - 7 assessed: 12/28/23 Feeling nervous, anxious, or on edge: 1 = Several days Not being able to stop or control worryin = More than half the days Worrying too much about different things: 2 = More than half the days Trouble relaxin = Several days Being so restless that it is hard to sit still: 0 = Not at all Becoming easily annoyed or irritable: 2 = More than half the days Feeling afraid as if something awful might happen: 0 = Not at all Total HARLEY-7 score (0-4 normal; 5-9 mild; 10-14 moderate; 15-21 severe): 8 Source: Developed by Drs. Walt Hunt, Judie Chowdary, Eagle Patino and colleagues, with an educational cruzito from [employer]. AUDIT C Alcohol Use Questionnaire (AUDIT-C) 1. How often do you have a drink containing alcohol?: Never Total Score: 0 Score Reviewed/Action Taken: Yes Review of Systems Const Details: * ROS is obtained from patient's - patient is unable to provide info due to her dementia Denies fever(s) and Denies headache(s) ENT Denies dysphagia, Denies dizziness, Denies headache(s), Denies odynophagia and Denies sore throat Card Denies chest pain and Denies dyspnea Resp Denies cough and Denies dyspnea GI Denies abdominal pain, Denies change in bowel habits, Denies dysphagia, Reports fecal incontinence (occasionally), Denies nausea, Denies odynophagia and Denies vomiting Denies dysuria and Reports urinary incontinence Skin/Breast Denies rash Neuro Denies behavioral changes, Reports confusion, Denies dizziness, Denies headache(s) and Reports memory loss Psych Denies behavioral changes, Reports confusion and Reports memory loss Physical Exam Vital Signs: Last Vital Signs Pulse 105 H 12/28/23 16:25 BP 130/72 12/28/23 16:25 Pulse Ox 100 12/28/23 16:25 Oxygen Delivery Method Room Air 12/28/23 16:25 BMI result Body Mass Index 22.5 Physical exam is limited to what patient is able to cooperate with - patient has advanced dementia IPPE/AWV: Balance Romberg - unable . Tandem walk - unable . Walk and Turn - not done . Rise from sit to stand Yes . Vision Corrective lens No Vision screen not done Hearing Whisper test not done. Urinary incont. yes. EKG Not clinically necessary. Const General: comfortable, no acute distress and confusion Orientation/consciousness: oriented to person and confusion HEENT Ears: TM's normal bilaterally and EAC's normal Throat: Yes posterior oropharynx normal and Yes tonsils normal Neck Neck: Yes no lymphadenopathy and Yes supple Thyroid: Thyroid normal Resp Auscultation: clear to auscultation bilaterally, no rales and no wheezes Cardio Rate: regular rate Rhythm: regular rhythm Heart sounds: no murmurs GI Palpation (GI): Soft to palpation and nontender Auscultation: normal bowel sounds Skin Rashes: no rashes Neuro General: oriented to person and confusion Gait exam (Neuro): Normal gait present Extrem General: Yes no clubbing, cyanosis or edema Assessment & Plan Assessment & Plan (1) Medicare annual wellness visit, subsequent: Code(s): Z00.00 - Encounter for general adult medical examination without abnormal findings Plan: HRA form discussed with patient's (proxy) and completed - form will be scanned into patient's chart (2) Alzheimer's dementia: Code(s): G30.9 - Alzheimer's disease, unspecified; F02.80 - Dementia in other diseases classified elsewhere, unspecified severity, without behavioral disturbance, psychotic disturbance, mood disturbance, and anxiety Plan: She used to take Donepezil but is now off Rx She is now residing at a local [place] [facility] in a controlled unit - at [facility] She has had no agitation or behavioral issues lately and is also no longer on any antipsychotics presently Follow up with neurology as scheduled (3) Dyslipidemia: Code(s): E78.5 - Hyperlipidemia, unspecified Plan: Reinforced low cholesterol diet (4) Impaired fasting glucose: Code(s): R73.01 - Impaired fasting glucose Plan: Her HgbA1c was normal at 5.6% when last checked in April 2022 Reinforced low calorie diet (5) Vitamin D deficiency: Code(s): E55.9 - Vitamin D deficiency, unspecified Plan: Corrected (6) Anemia: Code(s): D64.9 - Anemia, unspecified Qualifiers: Anemia type: B12 deficiency Vitamin B12 deficiency anemia type: other dietary B12 deficiency Qualified Code(s): D51.3 - Other dietary vitamin B12 deficiency anemia Plan: Mild - will continue to monitor her CBC regularly (7) Anxiety: Code(s): F41.9 - Anxiety disorder, unspecified Plan: Continue Mirtazapine 15 mg daily at bedtime and Melatonin 5 mg daily at bedtime Follow-up with Neurology as scheduled Plan Follow up in 6 months Quality Reporting (2019) Depression/Bipolar (159/160/161/177) PHQ-9: Total score: 0 Coding Level of Care Code Medicare Subsequent (G0439) Est Pt Level 3 (07670) Diagnoses Medicare annual wellness visit, subsequent Z00.00 Alzheimer's dementia G30.9; F02.80 Dyslipidemia E78.5 Impaired fasting glucose R73.01 Vitamin D deficiency E55.9 Other dietary vitamin B12 deficiency anemia D51.3 Anemia type: B12 deficiency Vitamin B12 deficiency anemia type: other dietary B12 deficiency Anxiety F41.9 CPT Codes Advance Care Planning - Time spent: 1-15 minutes, on File ([id number]) Advance Care Planning Advance Care Planning discussion: Completed/Scanned ( brought in copy of MOLST form from [place] [facility]) Date of discussion: 12/28/23 Time spent: 1-15 minutes, on File
[2023-12-28 16:25] VITALS: BP 130/72; PULSE 105; O2SAT 100; BMI 22.5
== END 2023-12-28 17:29 | disposition home or self-care (01) ==
PROVIDERS: PCP Internal Medicine; Visit Provider Internal Medicine
DX: Z00.00 Encounter for general adult medical examination without abnormal findings (principal); G30.9 Alzheimer's disease, unspecified; F02.80 Dementia in other diseases classified elsewhere, unspecified severity, without behavioral disturbance, psychotic disturbance, mood disturbance, and anxiety; E78.5 Hyperlipidemia, unspecified; R73.01 Impaired fasting glucose; E55.9 Vitamin D deficiency, unspecified; D51.3 Other dietary vitamin B12 deficiency anemia; F41.9 Anxiety disorder, unspecified
CPT/HCPCS: 1123F; G0439

== ENCOUNTER 2024-07-03 16:44 | Outpatient (AMB) | payer MEDICARE, MEDICAID, SELFPAY ==
[2024-07-03 16:48] VITALS: BP 112/82; PULSE 68; O2SAT 96; BMI 22.0
--- NOTE | 2024-07-03 16:48 | MHC.PC.OV ---
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 Accompanied by: Self / Same As Patient Allergies penicillin V Allergy (Unknown, Verified 07/03/24 17:19) rash Medication List - Last Reconciled 07/03/24 by Jerman Chong MD acetaminophen 650 mg PO QID PRN bisacodyl 10 mg [place] DAILY PRN food supplemt, lactose-reduced 1 ea PO .DAILY at 2 PM food supplemt, lactose-reduced 1 ea PO .QD magnesium hydroxide (Milk of Magnesia) 30 mL PO DAILY PRN melatonin 5 mg PO BEDTIME mirtazapine 15 mg PO BEDTIME multivitamin with minerals (Multiple Vitamin-Minerals tablet) 1 tab PO DAILY multivitamin with minerals (Multiple Vitamin-Minerals tablet) 1 tab PO DAILY sodium phosphates 19-7 gram/118 mL (Fleet Enema) 118 mL MO DAILY PRN trazodone 25 mg PO BEDTIME PRN Tobacco use date assessed: 07/03/24 Fall risk assessment: No Falls in past year Last assessed Fall Risk: 07/03/24 Dental Screening Dental Screen Date: 07/03/24 Did you have a dental visit in the last 12 months?: Yes Did you have a dental problem in the last 6 months where you did not have access to dental care?: No Was dental information given to patient?: Patient has dentist HPI Alzheimer's dementia HPI Details Patient is brought in by her today for follow-up visit Patient is still currently residing at a local jail and her goes to visit her daily/regularly Her states that patient's cognition has declined further since her last visit and notes that she does not recognize even family members most of the time anymore nowadays Patient is noted to be mumbling constantly to herself throughout her visit and is not able to respond to most questions but she does respond to greetings and did express thank you at the end of her visit today Patient appears comfortable throughout the exam today and does not appear to have any significant or acute issues including headaches, dizziness, chest pains, shortness of breath or abdominal pain Her states that she is currently up-to-date on her prescriptions and does not need any refills at this time She also has no follow-up labs done recently - she has not had any follow-up labs done since April of 2023 [facility] Medical History Post-menopausal Anxiety Anemia Vitamin D deficiency Impaired fasting glucose Dyslipidemia Alzheimer's dementia Surgical History History of hysterectomy Family History Father CHF (congestive heart failure) Diabetes Mother CHF (congestive heart failure) Diabetes Sister Diabetes Brother Lung abnormality Social History Housing: Halfway Alcohol intake: never Patient Tobacco Use Status: Never used Tobacco e-Cigarette/Vaping Use: Never Used Second Hand Smoke Exposure: Yes Advance Directives Date on File: 05/13/23 service: No Current occupational status: retired Cognitive needs: Yes Hearing needs: No Vision needs: No Questionnaire PHQ-9 Over the last 2 weeks, how often have you been bothered by any of the following problems? 1. Little interest or pleasure in doing things: not at all 2. Feeling down, depressed, or hopeless: not at all 3. Trouble falling or staying asleep, or sleeping too much: not at all 4. Feeling tired or having little energy: not at all 5. Poor appetite or overeating: not at all 6. Feeling bad about yourself - or that you are a failure or have let yourself or your family down: not at all 7. Trouble concentrating on things, such as reading the newspaper or watching television: not at all 8. Moving or speaking so slowly that other people could have noticed. Or the opposite - being so fidgety or restless that you have been moving around a lot more than usual: not at all 9. Thoughts that you would be better off or of hurting yourself in some way: not at all Total score: 0 Depression Screening Interpretation: Negative (screening is limited/unreliable due to dementia) Depression Screening Done: Yes 66000 - PHQ-9 Billing: Yes Source: Developed by Drs. Walt L. Marilee, Eagle Bob and colleagues, with an educational cruzito from [employer]. Thrive Questionnaire Date Thrive assessed: 07/03/24 I am a: Parent/Caregiver What is your living situation today?: I have a steady place to live (currently in jail) Within the past 12 months, did the food you bought not last and you didn't have the money to get more?: Never true Within the past 12 months, did you worry whether your food would run out before you got money to buy more?: Never true Do you have trouble paying for medicines?: No Do you have trouble getting transportation to medical appointments?: No Do you have trouble paying your heating and electricity bill?: No Do you have trouble taking care of your child, family member or friend?: No Do you have trouble with day-to-day activities such as bathing, preparing meals, shopping, managing finances, etc.?: No Are you currently unemployed and looking for a job?: No Are you interested in more education?: No Please select the resources that you would like help with: None Currently or been in a relationship where the following occur: No concerns reported THRIVE Score: 0 AUDIT C Alcohol Use Questionnaire (AUDIT-C) 1. How often do you have a drink containing alcohol?: Never Total Score: 0 Score Reviewed/Action Taken: Yes HARLEY-7 AMB Questionnaire HARLEY-7 Date HARLEY - 7 assessed: 07/03/24 Feeling nervous, anxious, or on edge: 1 = Several days Not being able to stop or control worryin = More than half the days Worrying too much about different things: 2 = More than half the days Trouble relaxin = Several days Being so restless that it is hard to sit still: 0 = Not at all Becoming easily annoyed or irritable: 2 = More than half the days Feeling afraid as if something awful might happen: 0 = Not at all Total HARLEY-7 score (0-4 normal; 5-9 mild; 10-14 moderate; 15-21 severe): 8 Source: Developed by Drs. Walt Hunt, Eagle Bob and colleagues, with an educational cruzito from [employer]. Review of Systems Const Details: * ROS is obtained from patient's - patient is unable to provide info due to her dementia Denies fever(s) and Denies headache(s) ENT Denies dysphagia, Denies dizziness, Denies headache(s), Denies odynophagia and Denies sore throat Card Denies chest pain and Denies dyspnea Resp Denies cough and Denies dyspnea GI Denies abdominal pain, Denies change in bowel habits, Denies dysphagia, Reports fecal incontinence (occasionally), Denies nausea, Denies odynophagia and Denies vomiting Denies dysuria and Reports urinary incontinence Skin/Breast Denies rash Neuro Denies behavioral changes, Reports confusion, Denies dizziness, Denies headache(s) and Reports memory loss Psych Denies behavioral changes, Reports confusion and Reports memory loss Physical exam (Primary Care) Vital Signs: Last Vital Signs Pulse 68 07/03/24 16:48 BP 112/82 07/03/24 16:48 Pulse Ox 96 07/03/24 16:48 Oxygen Delivery Method Room Air 07/03/24 16:48 BMI result Body Mass Index 22.0 Tobacco/Smoking Status: Tobacco use Status Tobacco use date assessed 07/03/24 07/03/24 16:59 Patient Tobacco Use Status Never used Tobacco 07/03/24 16:59 e-Cigarette/Vaping Use Never Used 07/03/24 16:59 PHQ-9: PHQ-9 Score PHQ-9: Total score 0 07/03/24 17:29 Depression Screening Interpretation: Negative (screening is limited/unreliable due to dementia) Thrive Assessment: Date of Thrive Assessment Date Thrive assessed 07/03/24 07/03/24 16:59 Currently or been in a relationship where the following occur: No concerns reported Const General: confusion Orientation/consciousness: confusion HENMT Ears: TM's normal bilaterally and EAC's normal Throat: Yes posterior oropharynx normal and Yes tonsils normal Neck Neck: Yes no lymphadenopathy and Yes supple Resp Auscultation: clear to auscultation bilaterally, no rales and no wheezes Cardio Rate: regular rate Rhythm: regular rhythm Heart sounds: no murmurs GI Palpation (GI): Soft to palpation, nontender, no guarding and not rigid Auscultation: normal bowel sounds Neuro General: confusion Extrem General: Yes no clubbing, cyanosis or edema Coding Level of Care Code Est Pt Level 4 (27986) Diagnoses Alzheimer's dementia G30.9; F02.80 Dyslipidemia E78.5 Impaired fasting glucose R73.01 Vitamin D deficiency E55.9 Other dietary vitamin B12 deficiency anemia D51.3 Anemia type: B12 deficiency Vitamin B12 deficiency anemia type: other dietary B12 deficiency Anxiety F41.9 Additional Codes PHQ-9 - 25736 - PHQ-9 Billing: Yes ([id number]) Assessment & Plan Assessment & Plan (1) Alzheimer's dementia: Code(s): G30.9 - Alzheimer's disease, unspecified; F02.80 - Dementia in other diseases classified elsewhere, unspecified severity, without behavioral disturbance, psychotic disturbance, mood disturbance, and anxiety Category: Medical Plan: Patient used to take Donepezil but is now off Rx She is now residing at a local jail in a controlled unit - at [facility] She has had no agitation or behavioral issues lately and is also no longer on any antipsychotics presently Follow up with neurology as scheduled (2) Dyslipidemia: Code(s): E78.5 - Hyperlipidemia, unspecified Category: Medical Plan: Reinforced low cholesterol diet As she has not had any follow-up labs done in over a year, will print out her lab orders and have her bring them to the jail where patient is currently residing at to see if they can just include these when she has some follow-up lab draws soon If not, have advised the patient's to help bring patient's over to the lab to get these done ETHEL (3) Impaired fasting glucose: Code(s): R73.01 - Impaired fasting glucose Category: Surgical Plan: Her HgbA1c was normal at 5.6% when last checked in April 2022 Reinforced low calorie diet (4) Vitamin D deficiency: Code(s): E55.9 - Vitamin D deficiency, unspecified Category: Medical Plan: Corrected (5) Anemia: Code(s): D64.9 - Anemia, unspecified Category: Medical Qualifiers: Anemia type: B12 deficiency Vitamin B12 deficiency anemia type: other dietary B12 deficiency Qualified Code(s): D51.3 - Other dietary vitamin B12 deficiency anemia Plan: Mild - will continue to monitor her CBC regularly (6) Anxiety: Code(s): F41.9 - Anxiety disorder, unspecified Category: Medical Plan: Continue Mirtazapine 15 mg daily at bedtime and Melatonin 5 mg daily at bedtime Follow-up with Neurology as scheduled Plan Follow-up in 6 months Orders: Orders TSH reflex Free T4 07/03/24 E78.00 - Pure hypercholesterolemia, unspecified, F03.90 - Unspecified dementia, unspecified severity, without behavioral disturbance, psychotic disturbance, mood disturbance, and anxiety UA CC w/rflx Micro + Cult 07/03/24 F03.90 - Unspecified dementia, unspecified severity, without behavioral disturbance, psychotic disturbance, mood disturbance, and anxiety, R30.0 - Dysuria Vitamin D 25-OH Total 07/03/24 E55.9 - Vitamin D deficiency, unspecified, F03.90 - Unspecified dementia, unspecified severity, without behavioral disturbance, psychotic disturbance, mood disturbance, and anxiety Hemoglobin A1c 07/03/24 E11.9 - Type 2 diabetes mellitus without complications, F03.90 - Unspecified dementia, unspecified severity, without behavioral disturbance, psychotic disturbance, mood disturbance, and anxiety Cholesterol 07/03/24 E78.5 - Hyperlipidemia, unspecified Complete Blood Count Auto Diff 07/03/24 D64.9 - Anemia, unspecified, F03.90 - Unspecified dementia, unspecified severity, without behavioral disturbance, psychotic disturbance, mood disturbance, and anxiety Comprehensive Met. Panel 07/03/24 F03.90 - Unspecified dementia, unspecified severity, without behavioral disturbance, psychotic disturbance, mood disturbance, and anxiety Vitamin B12 and Folate 07/03/24 E53.8 - Deficiency of other specified B group vitamins, F03.90 - Unspecified dementia, unspecified severity, without behavioral disturbance, psychotic disturbance, mood disturbance, and anxiety
== END 2024-07-03 17:33 | disposition home or self-care (01) ==
PROVIDERS: PCP Internal Medicine; Visit Provider Internal Medicine
DX: G30.9 Alzheimer's disease, unspecified (principal); F02.80 Dementia in other diseases classified elsewhere, unspecified severity, without behavioral disturbance, psychotic disturbance, mood disturbance, and anxiety; E78.5 Hyperlipidemia, unspecified; R73.01 Impaired fasting glucose; E55.9 Vitamin D deficiency, unspecified; D51.3 Other dietary vitamin B12 deficiency anemia; F41.9 Anxiety disorder, unspecified

== ENCOUNTER → 2024-07-03 16:44 | Outpatient (BNVA) | payer MEDICARE, SELFPAY | PROVIDERS: PCP Internal Medicine; Visit Provider Internal Medicine | DX: G30.9 Alzheimer's disease, unspecified (principal); F02.80 Dementia in other diseases classified elsewhere, unspecified severity, without behavioral disturbance, psychotic disturbance, mood disturbance, and anxiety; R73.01 Impaired fasting glucose; E55.9 Vitamin D deficiency, unspecified; D51.3 Other dietary vitamin B12 deficiency anemia; F41.9 Anxiety disorder, unspecified; E78.00 Pure hypercholesterolemia, unspecified; R30.0 Dysuria | CPT/HCPCS: 96127; 99212 ==

== ENCOUNTER 2025-01-01 13:30 | Outpatient (AMB) | payer MEDICARE, MEDICAID, SELFPAY ==
[2025-01-01 13:37] VITALS: BP 112/64; PULSE 76; O2SAT 98; BMI 21.7
--- NOTE | 2025-01-01 13:37 | A.OFFPC_ITS ---
Vital Signs 01/01/25 13:37 Height 5 ft 5 in Weight 130 lb 2 oz BMI 21.7 BP 112/64 Blood Pressure Location Lt brachial Position Sitting Pulse 76 Pulse Source Pulse Oximeter Pulse Oximetry (%) 98 Oxygen Delivery Method Room Air Intake Visit Reasons: 6 month f/u Residential Case Manager Required: No Accompanied by: Spouse Allergies penicillin V Allergy (Unknown, Verified 01/01/25 14:09) rash Medication List - Last Reconciled 01/01/25 by Jerman Chong MD acetaminophen 650 mg PO QID PRN bisacodyl 10 mg [place] DAILY PRN food supplemt, lactose-reduced 1 ea PO .DAILY at 2 PM food supplemt, lactose-reduced 1 ea PO .QD magnesium hydroxide (Milk of Magnesia) 30 mL PO DAILY PRN melatonin 5 mg PO BEDTIME mirtazapine 15 mg PO BEDTIME multivitamin with minerals (Multiple Vitamin-Minerals tablet) 1 tab PO DAILY multivitamin with minerals (Multiple Vitamin-Minerals tablet) 1 tab PO DAILY sodium phosphates 19-7 gram/118 mL (Fleet Enema) 118 mL [place] DAILY PRN trazodone 25 mg PO BEDTIME PRN Tobacco use date assessed: 01/01/25 Fall risk assessment: 1 Fall in past year Last assessed Fall Risk: 01/01/25 Dental Screening Dental Screen Date: 01/01/25 Did you have a dental visit in the last 12 months?: No Did you have a dental problem in the last 6 months where you did not have access to dental care?: No Was dental information given to patient?: No HPI 6 month f/u HPI Details Patient is brought in again by her today for her follow-up visit She is currently still residing at a local intermediate and her goes to visit her regularly/daily Her states that patient's cognition has declined significantly over the past couple of years and that she sometimes does not even recognize her own family members anymore She is noted to be mumbling constantly to herself throughout her visit and is not able to respond to most questions but she does respond to greetings and some commands Patient appears comfortable and does not appear to have any significant or acute issues throughout her visit today, including ay complaints of headaches, dizziness, chest pains, shortness of breath or abdominal pain Her states that she is currently up-to-date on her prescriptions and does not need any refills at this time She again has no follow-up labs done recently and she has not had any follow-up labs done since April of 2023 Her was supposed to take her for some labs after her last visit earlier this year but he was not able to do so - states that he thought that Leonard Maame pinzon was supposed to help her get these done [facility] Medical History Post-menopausal Anxiety Anemia Vitamin D deficiency Dyslipidemia Alzheimer's dementia Surgical History Impaired fasting glucose History of hysterectomy Family History Father CHF (congestive heart failure) Diabetes Mother CHF (congestive heart failure) Diabetes Sister Diabetes Brother Lung abnormality Social History Housing: Retirement Alcohol intake: never Patient Tobacco Use Status: Never used Tobacco e-Cigarette/Vaping Use: Never Used Second Hand Smoke Exposure: Yes Advance Directives Date on File: 05/13/23 service: No Current occupational status: retired Cognitive needs: Yes Hearing needs: No Vision needs: No Questionnaire PHQ-9 Over the last 2 weeks, how often have you been bothered by any of the following problems? 1. Little interest or pleasure in doing things: not at all 2. Feeling down, depressed, or hopeless: not at all 3. Trouble falling or staying asleep, or sleeping too much: not at all 4. Feeling tired or having little energy: not at all 5. Poor appetite or overeating: not at all 6. Feeling bad about yourself - or that you are a failure or have let yourself or your family down: not at all 7. Trouble concentrating on things, such as reading the newspaper or watching television: not at all 8. Moving or speaking so slowly that other people could have noticed. Or the opposite - being so fidgety or restless that you have been moving around a lot more than usual: not at all 9. Thoughts that you would be better off or of hurting yourself in some way: not at all Total score: 0 Depression Screening Interpretation: Negative (screening is limited/unreliable due to dementia) Depression Screening Done: Yes 32464 - PHQ-9 Billing: Yes Source: Developed by Drs. Walt Hunt, Judie Chowdary, Eagle Patino and colleagues, with an educational cruzito from [employer]. Thrive Questionnaire Date Thrive assessed: 01/01/25 I am a: Parent/Caregiver What is your living situation today?: I have a steady place to live Within the past 12 months, did the food you bought not last and you didn't have the money to get more?: Never true Within the past 12 months, did you worry whether your food would run out before you got money to buy more?: Never true Do you have trouble paying for medicines?: No Do you have trouble getting transportation to medical appointments?: No Do you have trouble paying your heating and electricity bill?: No Do you have trouble taking care of your child, family member or friend?: No Do you have trouble with day-to-day activities such as bathing, preparing meals, shopping, managing finances, etc.?: No Are you currently unemployed and looking for a job?: No Are you interested in more education?: No Please select the resources that you would like help with: None Currently or been in a relationship where the following occur: No concerns repo rted THRIVE Score: 0 AUDIT C Alcohol Use Questionnaire (AUDIT-C) 1. How often do you have a drink containing alcohol?: Never 3. How often do you have six or more drinks on one occasion?: Never Total Score: 0 Score Reviewed/Action Taken: Yes HARLEY-7 AMB Questionnaire HARLEY-7 Date HARLEY - 7 assessed: 01/01/25 Feeling nervous, anxious, or on edge: 1 = Several days Not being able to stop or control worryin = More than half the days Worrying too much about different things: 2 = More than half the days Trouble relaxin = Several days Being so restless that it is hard to sit still: 0 = Not at all Becoming easily annoyed or irritable: 2 = More than half the days Feeling afraid as if something awful might happen: 0 = Not at all Total HARLEY-7 score (0-4 normal; 5-9 mild; 10-14 moderate; 15-21 severe): 8 Source: Developed by Drs. Walt Hunt, Judie Chowdary, Eagle Patino and colleagues, with an educational cruzito from [employer]. Review of Systems Const Details: * ROS is obtained from patient's - patient is unable to provide info due to her dementia Denies fever(s) and Denies headache(s) ENT Denies dysphagia, Denies dizziness, Denies headache(s), Denies odynophagia and Denies sore throat Card Denies chest pain and Denies dyspnea Resp Denies cough and Denies dyspnea GI Denies abdominal pain, Denies change in bowel habits, Denies dysphagia, Reports fecal incontinence (occasionally), Denies nausea, Denies odynophagia and Denies vomiting Denies dysuria and Reports urinary incontinence Skin/Breast Denies rash Neuro Denies behavioral changes, Reports confusion, Denies dizziness, Denies headache(s) and Reports memory loss Psych Denies behavioral changes, Reports confusion and Reports memory loss Physical exam (Primary Care) Vital Signs: Last Vital Signs Pulse 76 01/01/25 13:37 BP 112/64 01/01/25 13:37 Pulse Ox 98 01/01/25 13:37 Oxygen Delivery Method Room Air 01/01/25 13:37 BMI result Body Mass Index 21.7 Tobacco/Smoking Status: Tobacco use Status Tobacco use date assessed 01/01/25 01/01/25 13:47 Patient Tobacco Use Status Never used Tobacco 01/01/25 13:47 e-Cigarette/Vaping Use Never Used 01/01/25 13:47 PHQ-9: PHQ-9 Score PHQ-9: Total score 0 01/01/25 13:47 Depression Screening Interpretation: Negative (screening is limited/unreliable due to dementia) Thrive Assessment: Date of Thrive Assessment Date Thrive assessed 01/01/25 01/01/25 13:47 Currently or been in a relationship where the following occur: No concerns reported Const General: confusion Orientation/consciousness: confusion HENMT Ears: TM's normal bilaterally and EAC's normal Throat: Yes posterior oropharynx normal and Yes tonsils normal Neck Neck: Yes supple and No lymphadenopathy Thyroid: Thyroid normal Resp Auscultation: clear to auscultation bilaterally, no rales and no wheezes Cardio Rate: regular rate Rhythm: regular rhythm Heart sounds: no murmurs GI Palpation (GI): Soft to palpation, nontender, no guarding and not rigid Auscultation: normal bowel sounds Neuro General: confusion Extrem General: Yes no clubbing, cyanosis or edema Coding Level of Care Code Est Pt Level 4 (75769) Diagnoses Alzheimer's dementia G30.9; F02.80 Dyslipidemia E78.5 Impaired fasting glucose R73.01 Vitamin D deficiency E55.9 Other dietary vitamin B12 deficiency anemia D51.3 Anemia type: B12 deficiency Vitamin B12 deficiency anemia type: other dietary B12 deficiency Anxiety F41.9 Additional Codes PHQ-9 - 82597 - PHQ-9 Billing: Yes ([id number]) Assessment & Plan Assessment & Plan (1) Alzheimer's dementia: Code(s): G30.9 - Alzheimer's disease, unspecified; F02.80 - Dementia in other diseases classified elsewhere, unspecified severity, without behavioral disturbance, psychotic disturbance, mood disturbance, and anxiety Category: Medical Plan: Patient used to take Donepezil but is now off all Rx for her dementia She is residing at a local intermediate in a controlled unit - at [facility] She has had no agitation or behavioral issues lately and is also no longer on any antipsychotics presently Follow up with neurology as scheduled (2) Dyslipidemia: Code(s): E78.5 - Hyperlipidemia, unspecified Category: Medical Plan: Reinforced low cholesterol diet She has not had any follow-up labs done in over a year - will again print out her lab orders and have her bring them to the intermediate where patient is currently residing at to see if they can just include these when she has some follow-up lab draws soon If not, have advised the patient's to help bring patient's over to the lab to get these done ETHEL (3) Impaired fasting glucose: Code(s): R73.01 - Impaired fasting glucose Category: Surgical Plan: Her HgbA1c was normal at 5.6% when last checked in April 2022 Reinforced low calorie diet (4) Vitamin D deficiency: Code(s): E55.9 - Vitamin D deficiency, unspecified Category: Medical Plan: Corrected Will recheck her Vitamin D level for follow up (5) Anemia: Code(s): D64.9 - Anemia, unspecified Category: Medical Qualifiers: Anemia type: B12 deficiency Vitamin B12 deficiency anemia type: other dietary B12 deficiency Qualified Code(s): D51.3 - Other dietary vitamin B12 deficiency anemia Plan: Will continue to monitor her CBC regularly (6) Anxiety: Code(s): F41.9 - Anxiety disorder, unspecified Category: Medical Plan: Continue Mirtazapine 15 mg daily at bedtime and Melatonin 5 mg daily at bedtime Follow-up with Neurology as scheduled Plan Follow-up in 6 months She will also return as scheduled on 01/09/2025 for her annual Medicare wellness exam
== END 2025-01-01 14:29 | disposition home or self-care (01) ==
PROVIDERS: PCP Internal Medicine; Visit Provider Internal Medicine
DX: G30.9 Alzheimer's disease, unspecified (principal); F02.80 Dementia in other diseases classified elsewhere, unspecified severity, without behavioral disturbance, psychotic disturbance, mood disturbance, and anxiety; E78.5 Hyperlipidemia, unspecified; R73.01 Impaired fasting glucose; E55.9 Vitamin D deficiency, unspecified; D51.3 Other dietary vitamin B12 deficiency anemia; F41.9 Anxiety disorder, unspecified

== ENCOUNTER → 2025-01-01 13:30 | Outpatient (BNVA) | payer MEDICARE, MEDICAID, SELFPAY | PROVIDERS: PCP Internal Medicine; Visit Provider Internal Medicine | DX: G30.9 Alzheimer's disease, unspecified (principal); F02.80 Dementia in other diseases classified elsewhere, unspecified severity, without behavioral disturbance, psychotic disturbance, mood disturbance, and anxiety; E78.5 Hyperlipidemia, unspecified; R73.01 Impaired fasting glucose; E55.9 Vitamin D deficiency, unspecified; D51.3 Other dietary vitamin B12 deficiency anemia; F41.9 Anxiety disorder, unspecified | CPT/HCPCS: 96127; 99212 ==